=== PATIENT | female | born 1960 | race Caucasian/White ===

== ENCOUNTER 2020-06-05 14:32 | Emergency (ER) | payer OTHER, SELFPAY ==
[2020-06-05 14:33] VITALS: BP 184/107; PULSE 73; RESP 16; TEMP 36.1; O2SAT 97; BMI 30.7
[2020-06-05 14:51] VITALS: BP 177/123; BP 186/104; BP 203/144; PULSE 62; PULSE 71
--- NOTE | 2020-06-05 15:18 | ED.DCSUM_ITS ---
History of Present Illness Chief Complaint: Syncope Informant: Patient Narrative: 59-year-old female presenting with dizziness which she states has been on and off since Saturday. She describes it as vertiginous and worse in the morning. She has associated nausea. She has no visual complaints. She does not have a headache. She states she has no medical problems but has not been to a doctor in 10 years. She is not having chest pain, palpitations, shortness of breath. She has not had fever or chills. She is eating and drinking normally. She is making normal urine and stool. Past Medical History - Allergies and Home Meds Allergies/Adverse Reactions: Allergies codeine Adverse Reaction (Verified 06/05/20 14:36) Other Primary Care Physician: Greg Sigala MD [STAFF PHYSICIAN] - Care Physician,No Primary [Primary Care Provider] - Prior records reviewed: Yes Past Medical History: None Lives: With Family Smoking Status: Current every day smoker Alcohol: None Drugs: None Review of Systems General: Denies: Chills, Fever, Sweats Eyes: Denies: Visual changes - bilaterally, Diplopia ENT: Denies: Rhinorrhea, Sore throat Cardiovascular: Denies: Chest pain, Palpitations Respiratory: Denies: Dyspnea, Cough, Dyspnea on exertion Gastrointestinal: Reports: Nausea. Denies: Abdominal pain, Vomiting, Diarrhea, Melena, Hematochezia Genitourinary: Denies: Dysuria, Hematuria, Frequency Musculoskeletal: Denies: Back pain, Extremity Pain Skin: Denies: Rash, Wounds Neurological: Denies: Headache, Weakness, Parasthesia, Numbness Psych: Denies: Depression, Anxiety Physical Exam Vital Signs/Narrative: Vital Signs Temp Pulse Pulse Pulse Resp BP BP 06/05/20 14:51 62 71 186/104 H 06/05/20 14:33 97 F L 73 16 184/107 H BP BP Pulse Ox 06/05/20 14:51 203/144 H 177/123 H 06/05/20 14:33 97 General: Well nourished, No Acute Distress Head: Normocephalic, Atraumatic Eyes: Perrl, EOMI ENT: - - Dizziness is reproducible with [place]-Hallpike to the right. Cardiovascular: Regular rate, Regular rhythm Respiratory: No distress, CTA bilaterally Extremities: Nontender, No edema Skin: Normal color, No rash Neurological: Alert, Oriented x3, Cranial nerves II-XII grossly intact Psychological: Normal affect, Normal Mood Diagnostic/Tx/Re-eval - Rhythm Strip Rhythm Strip: Sinus Rhythm Rate: 54 - EKG Initial EKG Interpretation: Sinus Rhythm, No Acute Injury Pattern - Medical Decision Making 59-year-old female presenting with dizziness and found to be hypertensive. On physical exam I ambulated to reproduce her dizziness with [place]-Hallpike however she is hypertensive significantly. For this reason I did pursue a work-up. Patient had CBC CMP, troponin which were all within normal limits. EKG is interpreted by myself shows a sinus rhythm without any signs of ischemia. Chest x-ray is interpreted by myself shows no acute cardiopulmonary process however there is an 18 mm pulmonary nodule. Radiology does agree. CT of the brain is also negative for acute findings. Patient given 5 g of hydralazine with good response of her blood pressure. She feels well. I did branch credit counselor her on her pulmonary nodule and that she needed to follow-up for repeat imaging. She started on amlodipine 5 mg p.o. daily. Patient was also given a prescription for meclizine to use as needed. Patient was given referral for primary care she does not have a primary care physician. Patient is stable for discharge at this time. Impression: 1. Hypertension new medication started 2. Vertigo 3. Pulmonary nodule ED Disposition - Plan for ED Patient: Disposition: Home or Assisted Living Instructions: ED Hypertension, New (Begin Treatment), ED Pulmonary Nodule, Solitary, ED Vertigo, Unspecified Prescriptions: Meclizine HCl 25 mg PO Q8H PRN PRN #30 tab.chew PRN Reason: Dizziness Prescription Printed Amlodipine [Norvasc] 5 mg PO DAILY #30 tab Prescription Printed Referrals: Care Physician,No Primary [Primary Care Provider] - Greg Sigala MD [STAFF PHYSICIAN] -
--- NOTE | 2020-06-05 15:21 | EKG12_ITS ---
Test Reason : DIZZINESS Blood Pressure : / mmHG Vent. Rate : 054 BPM Atrial Rate : 054 BPM P-R Int : 118 ms QRS Dur : 080 ms QT Int : 410 ms P-R-T Axes : 066 070 058 degrees QTc Int : 388 ms Sinus bradycardia Otherwise normal ECG Confirmed by GRISELDA RICE, AUSTIN ([id number]), slot editor PEPE SHAH ([id number]) on 06/07/2020 8:21:20 AM Referred By: LENORE Confirmed By:AUSTIN VILLALOBOS MD
--- NOTE | 2020-06-05 15:21 | CT_ITS ---
STUDY: CT BRAIN WITHOUT CONTRAST REASON FOR EXAM: Female, 59 years old. Dizziness x 2 days, nausea. RADIATION DOSAGE (If Supplied By Facility): CTDIvol = ( 44.99 ) mGy, DLP = ( 779.24 ) mGycm TECHNIQUE: Transaxial CT imaging of the brain was performed without administration of intravenous contrast material. Individualized dose optimization techniques were used for this CT. COMPARISON: No relevant priors. FINDINGS: Normal soft tissue structures. Normal calvarium. Normal size ventricles and extra-axial spaces for the patient''s age. Normal white matter tracts of the cerebral hemispheres. Normal basal ganglia and thalami. Normal brainstem. Normal cerebellum. There is no intracranial hemorrhage. There are no findings of an acute ischemic infarction. Normal visualized paranasal sinuses. CT/Brain/Head without Contrast IMPRESSION: No acute intracranial hemorrhage or mass effect. Electronically Signed: Dieter Okeefe MD (Brooks) at 16:10 EST , Service support ,
[2020-06-05 15:38] LABS: Absolute Lymphocyte Count 2.25 X10^3/uL (0.83-4.51); Absolute Neutrophil Count 4.8 X10^3/uL (2.0-7.7); Basophil# 0.06 X10^3/uL; Basophil% 0.8 % (0-1); Eosinophil# 0.04 X10^3/uL; Eosinophils% 0.5 % (0-5); Hematocrit 42.6 % (37-47); Hemoglobin 14.3 g/dL (12.0-15.0); Lymphocyte # 2.25 X10^3/ul (4.0); Lymphocyte % 28.7 % (19-41); Mean Corp Hgb Conc 33.6 g/dL (32-36); Mean Corpuscular Hgb 30.4 pg (27.0-32.0); Mean Corpuscular Volume 90.4 fL (81-99); Mean Platelet Vol. 9.3 fl (6.2-12.0); Monocyte# 0.67 X10^3/uL; Monocyte% 8.5 % (0-10); NRBC Flagged by Analyzer 0 % (0-5); Neutrophil # 4.79 X10^3/uL (2.7-7.7); Neutrophil % 61.1 % (47-70); Platelet Count 269 K/mm3 (150-450); RBC Distribution Width CV 11.9 % (11.6-14.6); RBC Distribution Width SD 39.4 fl (35.1-43.9); Red Blood Count 4.71 M/mm3 (4.2-5.4); White Blood Count 7.8 K/mm3 (4.4-11.0)
[2020-06-05] MEDS: hydrALAZINE 20 MG/ML Vial 5 MG IV (15:41)
[2020-06-05 15:56] LABS: ALB/GLOB Ratio 1.1 RATIO (0.9-2.4); AST(SGOT) 19 U/L (15-37); Alanine Aminotransfer ALT/SGPT 25 U/L (13-56); Albumin, Serum 3.7 g/dL (3.2-5.0); Alkaline Phosphatase 78 U/L (45-117); Anion Gap 6 (5-15); BUN 16 mg/dL (7-18); Calcium,Total 8.8 mg/dL (8.5-10.1); Chloride 107 mmol/L (98-107); Creatinine, Serum 0.84 mg/dL (0.55-1.02); EST Glomerular Filtration Rate 73 mL/min (>60); Est Glom Filt Rate - Afr Amer 88 mL/min (>60); Estimated Creatinine Clearance 65.84 ml/min; Globulin 3.4 g/dL (2.2-4.2); Glucose 87 mg/dL (74-106); Potassium 3.8 mmol/L (3.5-5.1); Protein, Total 7.1 g/dL (6.4-8.2); Sodium Level 140 mmol/L (136-145)
[2020-06-05 16:09] VITALS: BP 136/94; PULSE 57; RESP 15; O2SAT 96
--- NOTE | 2020-06-05 16:10 | RAD_ITS ---
STUDY: X-RAY CHEST REASON FOR EXAM: Female, 59 years old. CO feeling dizzy (like room is spinning) off and on since Saturday. Also c/o nausea. TECHNIQUE: AP COMPARISON: None. FINDINGS: EKG leads project over the chest. No central or segmental pulmonary embolism. 18 mm round nodule in the right mid lung, no comparison. There is no demonstrated pleural abnormality. Normal size heart. Normal mediastinum and morro. Normal visualized pulmonary arteries. Normal visualized aortic arch and descending thoracic aorta. Normal visualized thoracic spine. Normal visualized ribs, clavicles, and shoulders. There is no demonstrated abnormality of the visualized soft tissue structures of the upper abdomen. RAD/Chest 1 View (Portable) IMPRESSION: 1. Nonacute portable x-ray examination of the chest. 2. 18 mm nodule in the right mid lung, no comparison study. Likely benign lesion such as granuloma but recommend comparison with prior studies or chest CT. Electronically Signed: Dieter Okeefe MD (Brooks) at 16:28 EST , Service support ,
[2020-06-05] MEDS: Meclizine HCl 25 MG Tablet PO (17:22)
[2020-06-05 17:45] VITALS: BP 138/88; PULSE 62; RESP 16; O2SAT 98
== END 2020-06-05 18:25 | disposition home or self-care (01) ==
PROVIDERS: Emergency Provider Student in an Organized Health Care Education/Training Program
DX: R42 Dizziness and giddiness (principal); R91.1 Solitary pulmonary nodule; I10 Essential (primary) hypertension; F17.200 Nicotine dependence, unspecified, uncomplicated
CPT/HCPCS: 70450; 71045; 80053; 84484; 85025; 93005; 96374; 99285; A4216

== ENCOUNTER → 2020-06-18 07:03 | Outpatient (CLI) | payer OTHER, SELFPAY ==
[2020-06-09 15:20] VITALS: BMI 34.4
[2020-06-18 09:08] LABS: CRP, High Sensitivity Cardiac 6.78 mg/L; Cholesterol 233 mg/dL (200); High Density Lipoprotein 62 mg/dL; Thyroid Stim Hormone (TSH) 2.01 uIU/mL (0.358-3.74); Triglycerides 116 mg/dL; Very Low Density Lipoprotein 23 mg/dL (5-40)
[2020-06-18 10:20] LABS: Hemoglobin A1c 5.4 % (3.8-5.6)
== END ==
PROVIDERS: PCP Internal Medicine; Referring Provider Internal Medicine; Visit Provider Internal Medicine
DX: H81.10 Benign paroxysmal vertigo, unspecified ear (principal); I10 Essential (primary) hypertension
CPT/HCPCS: 36415; 80061; 82306; 83036; 84443; 86141

== ENCOUNTER → 2020-09-22 15:43 | Outpatient (CLI) | payer OTHER, SELFPAY ==
--- NOTE | 2020-09-22 15:47 | CT_ITS ---
STUDY: CT CHEST WITH CONTRAST REASON FOR EXAM: Female, 60 years old. Lung nodule RADIATION DOSAGE (If Supplied By Facility): CTDIvol = ( 12.41 ) mGy, DLP = ( 561.89 ) mGycm TECHNIQUE: Transaxial imaging was performed following intravenous administration of IV 100mL Isovue-300. Individualized dose optimization techniques were used for this CT. COMPARISON: None. FINDINGS: The lungs are expanded. There is a right lower lobe 1.7 cm parenchymal nodule, image 61 series 4. 4 mm left lower lobe peripheral nodule, image 53 series 4. Normal heart and pericardium. Normal mediastinum. Normal hilar regions. Normal enhanced pulmonary arteries. Normal aorta arch and descending thoracic aorta. Normal osseous structures. There is no demonstrated abnormality of the visualized upper abdomen. CT/Chest WITH Contrast IMPRESSION: Pulmonary nodules as noted requiring further evaluation and follow-up. Electronically Signed: Fer Hall DO at 16:26 EDT Tel [phone], Service support ,
[2020-09-22 16:01] LABS: CREATININE FINGERSTICK 1.3 mg/dL (0.55-1.02)
== END ==
PROVIDERS: PCP Internal Medicine; Referring Provider Internal Medicine; Visit Provider Internal Medicine
DX: R91.1 Solitary pulmonary nodule (principal)
CPT/HCPCS: 71260; Q9967

== ENCOUNTER → 2020-12-27 07:45 | Outpatient (CLI) | payer OTHER, SELFPAY ==
[2020-12-27 08:02] LABS: Hematocrit 40.4 % (37-47); Hemoglobin 13.3 g/dL (12.0-15.0); Mean Corp Hgb Conc 32.9 g/dL (32-36); Mean Corpuscular Hgb 30.2 pg (27.0-32.0); Mean Corpuscular Volume 91.6 fL (81-99); Platelet Count 263 K/mm3 (150-450); RBC Distribution Width CV 12.2 % (11.6-14.6); RBC Distribution Width SD 40.8 fl (35.1-43.9); Red Blood Count 4.41 M/mm3 (4.2-5.4); White Blood Count 8.1 K/mm3 (4.4-11.0)
[2020-12-27 08:41] LABS: Prothrombin Time (Protime)PT. 12.3 SECONDS (11.7-14.9)
== END ==
PROVIDERS: PCP Internal Medicine; Referring Provider Internal Medicine Critical Care Medicine; Visit Provider Internal Medicine Critical Care Medicine
DX: R91.1 Solitary pulmonary nodule (principal); F17.210 Nicotine dependence, cigarettes, uncomplicated
CPT/HCPCS: 36415; 85027; 85610

== ENCOUNTER → 2020-12-30 10:30 | Outpatient (CLI) | payer OTHER, SELFPAY ==
--- NOTE | 2020-12-30 14:56 | PFTCOMP ---
COMPLETE PULMONARY FUNCTION TEST INTERPRETATION Brief HPI: Patient is a 60 year old female, currently under the care of Dr. Farah, who presents to [facility] for complete pulmonary function tests secondary to diagnosis of nicotine dependence. Respiratory therapist reports good effort and reproducible results. Interpretation: Forced expiration spirometry shows a mild large airways obstructive ventilatory defect with an FEV1 of 80% predicted. There is a significant bronchodilator response in FEV1 by strict ATS criteria. Spirograms are of good quality and plateau slowly, indicating slowly emptying areas of the lungs. The respiratory flow volume loop shows decreased expiratory flow rates at all lung volumes consistent with airway obstruction. Lung volumes by body plethysmography show a normal total lung capacity at 5.74 L, 113% predicted. FRC and RV are elevated out of proportion. Lung volume measurements are consistent with hyperinflation and air-trapping. Diffusion capacity by carbon monoxide is decreased at 68% predicted. The airway resistance is elevated. No previous pulmonary function tests were available for review. Impression: Partially reversible mild large airways obstructive ventilatory defect with a disproportionate reduction diffusing capacity, resulting in air trapping with hyperinflation.
== END ==
PROVIDERS: PCP Internal Medicine; Referring Provider Internal Medicine Critical Care Medicine; Visit Provider Internal Medicine Critical Care Medicine
DX: F17.210 Nicotine dependence, cigarettes, uncomplicated (principal); R91.1 Solitary pulmonary nodule
CPT/HCPCS: 94060; 94726; 94729

== ENCOUNTER → 2021-01-12 09:03 | Outpatient (CLI) | payer OTHER, SELFPAY ==
[2021-01-12] VITALS (13 sets, daily range): BP systolic 98–156; BP diastolic 60–94; PULSE 53–78; RESP 13–23; TEMP 36.7; O2SAT 95–99; BMI 34.2
--- NOTE | 2021-01-12 | ASPIGT_PTH ---
PATIENT: RUSSELL DSOUZA LOC: CT U#:[id number] AGE/SX: 64/F ROOM: RE01/12/[address]: Dr. Dinesh Farah DO : 1960 BED: DIS: SPEC #: [id number] RECD: 01/12/21 11:01 STATUS: ALFREDO HENRIQUE #: [id number] JUAN JOSÉ: 01/12/21 00:[address]: Dinesh Farah DEPT: SURGICAL PATHOLOGY RECD BY: Jp Edwards ENTERED: 01/12/21 11:01 SP TYPE: ASP RAD OTHR DR: Dr. Thelma Ahumada MD Tissues: Lung, NOS Procedures: FNA Specimen Adequacy Special Stain Group II Surgery Specimen Level IV Imprint (control) HEADER OPERATION: CT-guided right lung biopsy PRE-OP DIAGNOSIS: RLL nodule TISSUE SUBMITTED: Right lung 20-gauge core x6 MICROSCOPIC DIAGNOSIS Right lower lobe lung nodule, CT-guided core biopsy: Fragments of benign lung parenchymal tissue with chronic inflammation, focal fibrosis and cartilaginous tissue. Negative for malignancy. See comment. SJ:calista 01/13/2021 COMMENT The specimen is evaluated at the time of biopsy by Dr. Mast. Immediate Evaluation: Set 1 - Negative for malignant cells (2 smears). Set 2 - Negative for malignant cells (2 smears). The findings may represent hamartoma. Correlation with clinical, radiologic findings and appropriate follow up are necessary. Case has been reviewed in consultation with Dr. Gonzales who concurs with the above diagnosis. IDC:AM MICROSCOPIC DESCRIPTION Slides are reviewed. GROSS DESCRIPTION Received is one container labeled with the patient's name and not further designated. The specimen consists of multiple minute fragments of nieves tissue that in aggregate measure 1 x 0.1 x <0.1 cm. The specimen is totally submitted in one cassette. Four touch imprints are prepared at the time of core biopsy. / AM:calista 01/12/21 TC:5 CPT: 92801, 33377, 82669
--- NOTE | 2021-01-12 09:05 | CT_ITS ---
PROCEDURE: CT GUIDED CORE NEEDLE BIOPSY OF A right lower lobe LUNG LESION INDICATION: Female, 60 years old. RLL Nodule PHYSICIAN: Dr. FAY Curry CONSENT: Written informed consent was obtained having explained the risks, benefits and alternatives in detail with the patient who accepted the risks and agreed to proceed. Laboratory review and clinical assessment was performed. CONSCIOUS SEDATION PROTOCOL: The Drugs used were: 2 mg Versed, IV., and 50 mcg Fentanyl, IV. The sedation time was: 26 minutes. Conscious sedation was started at 9:57 AM and terminated at 1023 The conscious sedation protocol was independently monitored. RADIATION DOSAGE (If Supplied By Facility): CTDIvol = ( 19.71 ) mGy, DLP = ( 274.38 ) mGycm Individualized dose optimization techniques were used for this CT. TECHNIQUE: The patient was placed in the prone position. A noncontrast CT was performed to localize the lesion in the posterior aspect of the right lower lobe . The skin surface was prepped and draped in a sterile fashion. 1% lidocaine was used for local anesthesia. Using CT guidance, a 20-gauge coaxial biopsy device was advanced to the periphery of the lesion. A total of 6 core specimens were obtained. The specimens were placed in a formalin solution. A post procedure CT demonstrated no adverse sequelae or pneumothorax. The patient tolerated the procedure well without adverse event. A negative biopsy does not exclude malignancy. Further imaging or clinical followup based on patient condition and degree of clinical suspicion for malignancy. Suggest rebiopsy, if biopsy results do not match with clinical scenario. CT/Biopsy/Inj or Needle Placement IMPRESSION: 1. CT directed core needle biopsy of the right lower lobe pulmonary nodule using CT image guidance with image documentation as described. Pathology results are pending. 2. Conscious Sedation protocol utilized with independent monitoring. Electronically Signed: Justen Leo MD at 11:08 EDT , Service support ,
[2021-01-12] MEDS: Midazolam 2 MG/2 ML Syringe IV (09:57)
[2021-01-12] MEDS: fentaNYL 100 MCG/2 ML Ampul IV (09:58)
[2021-01-12] MEDS: Lidocaine 2% (20 ml mdv) 20 ML Vial INFILT (10:10)
--- NOTE | 2021-01-12 10:32 | RAD_ITS ---
STUDY: X-RAY CHEST REASON FOR EXAM: Female, 60 years old. Post biopsy -- immediately post lung biopsy TECHNIQUE: AP inspiration and expiration views. Immediate postright lung biopsy radiograph. COMPARISON: None. FINDINGS: Tiny right apical pneumothorax. RAD/Chest Insp/Exp 2 View IMPRESSION: Tiny right apical pneumothorax. Electronically Signed: Justen Leo MD at 11:00 EDT , Service support ,
--- NOTE | 2021-01-12 12:30 | RAD_ITS ---
STUDY: X-RAY CHEST REASON FOR EXAM: Female, 60 years old. Post biopsy -- 2 hours post lung biopsy TECHNIQUE: AP inspiration and expiration views. COMPARISON: Comparison is made with prior study done earlier today. FINDINGS: The patient is status post right lung biopsy. There is a tiny right apical pneumothorax. RAD/Chest Insp/Exp 2 View IMPRESSION: Tiny right apical pneumothorax following a right lung biopsy. The patient is asymptomatic. Electronically Signed: Justen Leo MD at 13:03 EDT , Service support ,
== END | disposition home or self-care (01) ==
PROVIDERS: PCP Internal Medicine; Referring Provider Internal Medicine Critical Care Medicine; Visit Provider Internal Medicine Critical Care Medicine
DX: J84.10 Pulmonary fibrosis, unspecified (principal); J98.4 Other disorders of lung
CPT/HCPCS: 32408; 71046; 77012; 88172; 88305; 88313; 99156; J7040; C2613

== ENCOUNTER → 2021-04-05 12:51 | Outpatient (CLI) | payer OTHER, SELFPAY ==
--- NOTE | 2021-04-05 12:56 | CT_ITS ---
STUDY: CT CHEST WITHOUT CONTRAST REASON FOR EXAM: Female, 60 years old. Lung nodule f/u RADIATION DOSAGE (If Supplied By Facility): CTDIvol = ( 10.01 ) mGy, DLP = ( 348.32 ) mGycm TECHNIQUE: Transaxial imaging was performed without the administration of intravenous contrast material. Multiplanar coronal and sagittal images were reformatted. Individualized dose optimization techniques were used for this CT. COMPARISON: Comparison is made with prior study dated 09/22/2020. FINDINGS: Mild degree of scarring at the right lung apex. Mild degree of emphysematous changes in both lungs. Stable 1.7 cm noncalcified nodule in the superior aspect of the right lower lobe as seen on axial image #56. Stable 4 mm noncalcified nodule in the peripheral aspect of the left lower lobe as seen on axial image #49. There is no demonstrated pleural abnormality. Normal heart and pericardium. There are multiple small lymph nodes within the mediastinum, which are normal in size and morphology most compatible with reactive lymph hyperplasia. Normal hilar regions. Normal unenhanced pulmonary arteries. Normal aorta arch and descending thoracic aorta. There are multi-level degenerative changes of the thoracic spine. There is no demonstrated abnormality of the visualized upper abdomen. CT/Chest without Contrast IMPRESSION: Stable examination. Six-month follow-up is recommended. Electronically Signed: Justen Leo MD at 15:07 EST , Service support ,
== END ==
PROVIDERS: PCP Internal Medicine; Referring Provider Nurse Practitioner Acute Care; Visit Provider Nurse Practitioner Acute Care
DX: R91.1 Solitary pulmonary nodule (principal)
CPT/HCPCS: 71250

== ENCOUNTER 2021-05-16 13:41 | Outpatient (CLI) | payer OTHER, SELFPAY ==
[2021-05-16 15:05] LABS: Absolute Lymphocyte Count 2.05 X10^3/uL (0.83-4.51); Absolute Neutrophil Count 4.7 X10^3/uL (2.0-7.7); Basophil# 0.03 X10^3/uL; Basophil% 0.4 % (0-1); Eosinophil# 0.01 X10^3/uL; Eosinophils% 0.1 % (0-5); Hematocrit 41.7 % (37-47); Hemoglobin 14.3 g/dL (12.0-15.0); Lymphocyte # 2.05 X10^3/ul (0.83-4.51); Lymphocyte % 27.5 % (19-41); Mean Corp Hgb Conc 34.3 g/dL (32-36); Mean Corpuscular Hgb 30.4 pg (27.0-32.0); Mean Corpuscular Volume 88.5 fL (81-99); Mean Platelet Vol. 10.2 fl (6.2-12.0); Monocyte# 0.66 X10^3/uL; Monocyte% 8.9 % (0-10); NRBC Flagged by Analyzer 0 % (0-5); Neutrophil # 4.68 X10^3/uL (2.7-7.7); Neutrophil % 62.8 % (47-70); POSITIVE MORPHOLOGY YES; Platelet Count 209 K/mm3 (150-450); RBC Distribution Width CV 12.4 % (11.6-14.6); RBC Distribution Width SD 40.2 fl (35.1-43.9); Red Blood Count 4.71 M/mm3 (4.2-5.4); White Blood Count 7.5 K/mm3 (4.4-11.0)
[2021-05-16 15:06] LABS: Differential Indicated SCAN CRITERIA MET
[2021-05-16 15:22] LABS: Vitamin D,25 Hydroxy 33.1 ng/mL
[2021-05-16 15:32] LABS: ALB/GLOB Ratio 1.1 RATIO (0.9-2.4); AST(SGOT) 27 U/L (15-37); Alanine Aminotransfer ALT/SGPT 35 U/L (13-56); Albumin, Serum 3.6 g/dL (3.2-5.0); Alkaline Phosphatase 73 U/L (45-117); Anion Gap 7 (5-15); BUN 11 mg/dL (7-18); BUN/Creat Ratio 16.1 RATIO (10-20); Calcium,Total 8.2 mg/dL (8.5-10.1); Chloride 107 mmol/L (98-107); Creatinine, Serum 0.68 mg/dL (0.55-1.02); EST Glomerular Filtration Rate 92 mL/min (>60); Est Glom Filt Rate - Afr Amer 112 mL/min (>60); Free T3 2.5 pg/mL (2.18-3.98); Globulin 3.4 g/dL (2.2-4.2); Glucose 99 mg/dL (74-106); Magnesium 2.4 mg/dL (1.6-2.6); Potassium 3.7 mmol/L (3.5-5.1); Sodium Level 140 mmol/L (136-145); T4 Free Direct 1.26 ng/dL (0.76-1.46); Thyroid Stim Hormone (TSH) 1.32 uIU/mL (0.358-3.74)
[2021-05-16 15:57] LABS: Anisocytosis RARE; Atypical Lymphocyte 1+ %; Platelet Estimate ADEQUATE (ADEQ); Red Cell Morphology N CHROM NORMAL (NORM C&C)
== END 2021-05-16 23:59 | disposition short-term general hospital (02) ==
LOC: BIMLAB 13:42
PROVIDERS: PCP Internal Medicine; Referring Provider Internal Medicine; Visit Provider Internal Medicine
DX: R25.1 Tremor, unspecified (principal)
CPT/HCPCS: 36415; 80053; 82306; 83735; 84439; 84443; 84481; 85025

== ENCOUNTER → 2021-11-13 | Outpatient (CLI) | payer OTHER, SELFPAY ==
--- NOTE | 2021-11-13 07:47 | CT_ITS ---
STUDY: CT CHEST WITHOUT CONTRAST REASON FOR EXAM: Female, 61 years old. Lung Nodules RADIATION DOSAGE (If Supplied By Facility): CTDIvol = ( 15.22 ) mGy, DLP = ( 589.37 ) mGycm TECHNIQUE: Transaxial imaging was performed without the administration of intravenous contrast material. Multiplanar coronal and sagittal images were reformatted. Individualized dose optimization techniques were used for this CT. COMPARISON: Comparison is made with prior study dated 04/05/2021. FINDINGS: CHEST Stable small benign-appearing bilateral axillary nodes. Stable mild scarring at the right lung apex. Stable 1.7 cm noncalcified nodule in the superior aspect of the right lower lobe as seen on axial image #58. Stable 4 mm noncalcified nodule in the peripheral aspect of the left lower lobe as seen on axial image #48. There is no demonstrated pleural abnormality. There are calcifications of the coronary arteries. There are multiple small lymph nodes within the mediastinum, which are normal in size and morphology most compatible with reactive lymph hyperplasia. Normal hilar regions. Normal unenhanced pulmonary arteries. There is atherosclerotic calcification of the aortic arch. There are multi-level degenerative changes of the thoracic spine. There is no demonstrated abnormality of the visualized upper abdomen. CT/Chest without Contrast IMPRESSION: Stable examination. Electronically Signed: Justen Leo MD at 9:03 EDT ,
== END | disposition home or self-care (01) ==
PROVIDERS: PCP Internal Medicine; Referring Provider Internal Medicine Critical Care Medicine; Visit Provider Internal Medicine Critical Care Medicine
DX: R91.1 Solitary pulmonary nodule (principal)
CPT/HCPCS: 71250

== ENCOUNTER → 2022-10-29 | Outpatient (CLI) | payer OTHER, SELFPAY ==
--- NOTE | 2022-10-29 06:56 | CT_ITS ---
EXAM: CT CHEST WITHOUT INTRAVENOUS CONTRAST CLINICAL INDICATION: Lung Nodule, Tobacco Dependency Lung Nodule, Tobacco Dependency TECHNIQUE: Helically acquired images were obtained of the chest without intravenous contrast. This CT exam was performed using one or more of the following dose reduction techniques: automated exposure control, adjustment of the mA and/or kV according to patient size, and/or use of iterative reconstruction technique. RADIATION DOSE: CTDIvol = 15.06 mGy, DLP = 545.63 mGy-cm COMPARISON: 11/13/2021. 09/22/2020. FINDINGS: LUNGS AND PLEURAL SPACES: There are very mild fibrotic changes in the right lung apex. There are a few small paraseptal emphysematous bullae in the right lung apex. As seen on series 2, axial images 54-61, there is a 2 cm right lower lobe lung nodule. By my measurement there is no definite change in size from previous exams. As seen on axial image 48, there is a 4.5 mm left lower lobe lung nodule, which also appears stable. No pleural effusion or thickening. No pneumothorax. HEART: There are small coronary artery calcifications. Heart size is normal. No pericardial effusion. MEDIASTINUM: Unremarkable. No mediastinal or hilar adenopathy. Esophagus is unremarkable. No hiatal hernia. THYROID: Unremarkable. No thyroid lesions. BONES/JOINTS: There are multilevel degenerative changes in the visualized spine. No suspicious lytic or blastic abnormality. VASCULATURE: See above. LIVER: There are small low attenuation space occupying lesions in the visualized left lobe liver which are stable in appearance and probably represent cysts. No further evaluation is necessary. CT/Chest without Contrast IMPRESSION: 1. 2 cm right lower lobe lung nodule and 4.5 mm left lower lobe lung nodule are stable in size over the last 2 years. Fleischner Society Guidelines suggest no follow-up is necessary for patients with a high risk of malignancy. 2. Small coronary artery calcifications. Electronically Signed: Pato Heredia MD at 8:01 EDT ,
== END | disposition home or self-care (01) ==
LOC: CT 06:55
PROVIDERS: PCP Internal Medicine; Referring Provider Internal Medicine Critical Care Medicine; Visit Provider Internal Medicine Critical Care Medicine
DX: R91.8 Other nonspecific abnormal finding of lung field (principal); F17.200 Nicotine dependence, unspecified, uncomplicated
CPT/HCPCS: 71250

== ENCOUNTER → 2022-12-03 | Outpatient (CLI) | payer OTHER, SELFPAY ==
[2022-12-03 12:20] LABS: Absolute Lymphocyte Count 2.28 X10^3/uL (0.83-4.51); Absolute Neutrophil Count 6.4 X10^3/uL (2.0-7.7); Basophil# 0.08 X10^3/uL; Basophil% 0.8 % (0-1); Eosinophil# 0.06 X10^3/uL; Eosinophils% 0.6 % (0-5); Hematocrit 42.5 % (37-47); Hemoglobin 14.6 g/dL (12.0-15.0); Lymphocyte # 2.28 X10^3/ul (0.83-4.51); Lymphocyte % 23.9 % (19-41); Mean Corp Hgb Conc 34.4 g/dL (32-36); Mean Corpuscular Hgb 31.2 pg (27.0-32.0); Mean Corpuscular Volume 90.8 fL (81-99); Mean Platelet Vol. 9.5 fl (6.2-12.0); Monocyte# 0.75 X10^3/uL; Monocyte% 7.9 % (0-10); NRBC Flagged by Analyzer 0 % (0-5); Neutrophil # 6.35 X10^3/uL (2.7-7.7); Neutrophil % 66.5 % (47-70); Platelet Count 270 K/mm3 (150-450); RBC Distribution Width CV 12.3 % (11.6-14.6); RBC Distribution Width SD 40.8 fl (35.1-43.9); Red Blood Count 4.68 M/mm3 (4.2-5.4); White Blood Count 9.6 K/mm3 (4.4-11.0)
[2022-12-03 12:52] LABS: Vitamin D,25 Hydroxy 35.4 ng/mL
[2022-12-03 13:04] LABS: ALB/GLOB Ratio 0.9 RATIO (0.9-2.4); AST(SGOT) 25 U/L (15-37); Alanine Aminotransfer ALT/SGPT 30 U/L (13-56); Albumin, Serum 3.6 g/dL (3.2-5.0); Alkaline Phosphatase 82 U/L (45-117); Anion Gap 4 (5-15); BUN 17 mg/dL (7-18); BUN/Creat Ratio 18.1 RATIO (10-20); Calcium,Total 8.7 mg/dL (8.5-10.1); Chloride 104 mmol/L (98-107); Cholesterol 230 mg/dL (200); Creatinine, Serum 0.94 mg/dL (0.55-1.02); EST Glomerular Filtration Rate 64 mL/min (>60); Est Glom Filt Rate - Afr Amer 77 mL/min (>60); Globulin 3.8 g/dL (2.2-4.2); Glucose 97 mg/dL (74-106); High Density Lipoprotein 58 mg/dL; Potassium 4.1 mmol/L (3.5-5.1); Protein, Total 7.4 g/dL (6.4-8.2); Sodium Level 135 mmol/L (136-145); Thyroid Stim Hormone (TSH) 2.11 uIU/mL (0.358-3.74); Triglycerides 119 mg/dL; Very Low Density Lipoprotein 24 mg/dL (5-40)
== END | disposition home or self-care (01) ==
LOC: LAB 11:56
PROVIDERS: PCP Internal Medicine; Referring Provider Internal Medicine; Visit Provider Internal Medicine
DX: I10 Essential (primary) hypertension (principal); J44.9 Chronic obstructive pulmonary disease, unspecified; F17.210 Nicotine dependence, cigarettes, uncomplicated; E55.9 Vitamin D deficiency, unspecified
CPT/HCPCS: 36415; 80053; 80061; 82306; 84443; 85025

== ENCOUNTER → 2023-06-18 | Outpatient (CLI) | payer OTHER, SELFPAY ==
[2023-06-18 17:54] LABS: Hemoglobin A1c 5.7 % (3.8-5.6)
== END | disposition home or self-care (01) ==
PROVIDERS: PCP Internal Medicine; Referring Provider Orthopaedic Surgery Sports Medicine; Visit Provider Orthopaedic Surgery Sports Medicine
DX: M75.01 Adhesive capsulitis of right shoulder (principal)
CPT/HCPCS: 36415; 83036

== ENCOUNTER → 2023-11-04 | Outpatient (CLI) | payer MEDICARE, SELFPAY ==
--- NOTE | 2023-11-04 08:42 | CT_ITS ---
STUDY: LOW DOSE CT LUNG CANCER SCREENING REASON FOR EXAM: Female, 63 years old. Smoker and gt;40 pack years RADIATION DOSAGE (If Supplied By Facility): CTDIvol = ( 4.02 ) mGy, DLP = ( 142.95 ) mGycm TECHNIQUE: No contrast was administered. Low dose technique was utilized (average mAS-38 and kVp 120). 1.25 mm axial source images with a slice interval of 1.25-mm were reconstructed in lung windows. 2.5 mm axial source images with a slice interval of 2.5-mm were reconstructed in lung windows. 5.0 mm axial source images with a slice interval of 5.0-mm were reconstructed in soft tissue windows. COMPARISON: Comparison is made with prior study dated October 29, 2022. NODULES: Stable 2 cm well-defined nodule in the superior posterior segment of the right lower lobe as seen on axial image #116. Stable 4.5 mm noncalcified nodule in the left lower lobe Emphysema: Stable scarring in the right lung apex. Endobronchial lesion: None Aorta: Atherosclerotic calcific plaques. CORONARY ARTERIES: Coronary artery calcification is seen. Heart: Unremarkable Pulmonary artery: Unremarkable Mediastinal nodes: Small mediastinal lymph nodes. Other chest and abdominal findings: CT/Low Dose CT Lung Screening IMPRESSION: Lung-RADS category 2 - Continue annual screening with LDCT in 12 months. IMPORTANT NOTES FOR USE: ACR Lung-RADS Version 1.1 Assessment Categories Release Date: 2018 Category: Coded 0-4 bases on nodule(s) with highest degree of suspicion. Negative screen is defined as categories 1 and 2; a positive screen is defined as categories 3 and 4. Category 3 and 4A nodules that are unchanged on interval CT should be coded as category 2, and individuals returned to screening in 12 months. Category 4X: Category 3 or 4 nodules with additional imaging findings that increase the suspicion of lung cancer, such as spiculation, GGN that doubles in size in 1 year, enlarged lymph notes, etc. Category Modifiers: S (significant finding unrelated to lung cancer) Electronically Signed: Justen Leo MD at 13:20 EDT ,
== END | disposition home or self-care (01) ==
PROVIDERS: PCP Internal Medicine; Referring Provider Nurse Practitioner Acute Care; Visit Provider Nurse Practitioner Acute Care
DX: F17.210 Nicotine dependence, cigarettes, uncomplicated (principal)
CPT/HCPCS: 71271

== ENCOUNTER 2024-10-18 22:16 | Emergency (ER) | payer MEDICARE, SELFPAY ==
[2024-10-18 22:16] VITALS: BP 156/72; PULSE 64; RESP 18; TEMP 36.9; O2SAT 96; BMI 34.9
--- NOTE | 2024-10-18 22:32 | EKG12_ITS ---
Test Reason : DIZZY Blood Pressure : */* mmHG Vent. Rate : 59 BPM Atrial Rate : 59 BPM P-R Int : 126 ms QRS Dur : 88 ms QT Int : 424 ms P-R-T Axes : 48 79 51 degrees QTcB Int : 419 ms Sinus bradycardia Otherwise normal ECG Confirmed by GRISELDA RICE, AUSTIN ([id number]), makeup editor VICENTA LEACH ([id number]) on 10/20/2024 6:47:20 AM Referred By: Confirmed By: AUSTIN VILLALOBOS MD
--- NOTE | 2024-10-18 22:32 | CT_ITS ---
PROCEDURE: BRAIN/HEAD WITHOUT CONTRAST 10/18/2024 REASON FOR EXAM: DIZZINESS TECHNIQUE: BRAIN/HEAD WITHOUT CONTRAST Coronal and Sagittal reconstruction series were provided. One or more dose reduction techniques were used (e.g., Automated exposure control, adjustment of the mA and/or kV according to patient size, use of iterative reconstruction technique. RADIATION DOSE SUMMARY: CTDlvol: 44.99 mGy DLP: 829.85 mGycm COMPARISON: 06/05/2020. FINDINGS: CT SCAN OF THE BRAIN WITHOUT IV CONTRAST CLINICAL INDICATION: TECHNIQUE: Axial and reformatted sagittal and coronal images of the brain obtained without IV contrast administration. Normal size of the ventricles and extra-axial spaces for the patient's age. Normal white matter tracts of the supratentorial brain. Normal basal ganglia and thalami. Normal brainstem. Normal cerebellum. There is no demonstrated extra-axial, intraparenchymal, or intraventricular hemorrhage. There are no findings of an acute ischemic infarction. Normal calvarium. There is no demonstrated fracture. Normal soft tissue structures. Normal visualized paranasal sinuses. CT/Brain/Head without Contrast IMPRESSION: Normal unenhanced CT scan of the brain. Reading Location: [id number]
--- NOTE | 2024-10-18 22:45 | EX.ED.DYSGE1 ---
HPI History of Present Illness Chief Complaint: Dizziness Narrative Narrative: Chief complaint and HPI: Dizziness with presyncope. 64-year-old female with past medical history of HTN and tobacco abuse presents for evaluation of dizziness with presyncope. Patient states this evening after getting up from a seated position she became dizzy/lightheaded. She states she was able to make it to her bedroom where she rested in bed. She states she then got up to smoke a cigarette and when walking she became dizzy/lightheaded with tunnel vision. Associated symptom was nausea and one episode of nonbilious/nonbloody emesis. She denies room spinning. She denies any fever, chills, URI symptoms, headache, vision changes, hearing changes, shortness of breath, chest pain abdominal pain, dysuria, diarrhea, constipation. Patient endorses good p.o. intake. She denies any neurological deficit, weakness, numbness/tingling. On chart review, patient has a history of dizziness in the past at that time she was diagnosed with HTN and vertigo. Review of systems: See HPI Medications: As listed on the chart Allergies: As listed on the chart PFSH: Per chart Vital signs: As listed on the chart. Reviewed. Physical exam: Gen: A&O x3, NAD Head: Normocephalic, atraumatic Eyes: No sclera icterus, conjunctiva clear, PERRL, EOMI no nystagmus, ENT: Moist mucous membranes, No facial asymmetry Neck: Trachea midline, No JVD CV: RRR, no murmurs, no peripheral edema Resp: Lungs CTA BL, no w/r/c GI: Abd soft, non-distended, non-tender, no r/r/g Musc: Full ROM, no deformity, strength +5/5 in all extremities, no pronator drift, no ataxia Skin: Warm, dry, intact Neuro: Alert, oriented, grossly intact, sensation intact, no focal deficits Psych: Cooperative, appropriate mood and affect [facility] Medical History (Reviewed 12/12/23 @ 07:50 by Liliana Rosas [employer], [employer]-C) Adhesive capsulitis of right shoulder Lung nodule Seasonal allergies Hypertension Home Medications ?Medication ?Instructions ?Recorded ?Last Taken ?Type calcium 600 mg (as 600 cap PO BID 12/21/20 Unknown History carbonate)-vitamin D3 12.5 mcg (500 unit) capsule (Calcium with Vit D3) amlodipine 5 mg tablet 5 mg PO BID #180 tabs 12/09/23 Unknown Rx meclizine 25 mg tablet 25 mg PO TID PRN dizziness 3 days 10/19/24 Unknown Rx #9 tabs Allergy/AdvReac Type Severity Reaction Status Date / Time codeine AdvReac Other Verified 12/12/23 07:41 Family History (Reviewed 12/12/23 @ 07:50 by Liliana Rosas [employer], [employer]-C) Mother Breast cancer CVA (cerebral vascular accident) Hypertension Osteoporosis Alcoholism Other Depression with anxiety Surgical History History of appendectomy Social History Smoking Status: Current every day smoker tobacco type: cigarettes Tobacco: How many years used: 40 alcohol intake: never substance use type: does not use what type of physical activity do you participate in: walking frequency: daily EXAM Physical Exam Const Vital Signs: 10/18/24 22:16 10/18/24 22:55 10/19/24 00:20 Temperature 98.4 F Temperature Source Oral Pulse Rate 64 64 Pulse Rate [Lying] 66 Respiratory Rate 18 20 H Blood Pressure 156/72 H 121/49 H Blood Pressure [Lying] 156/76 H Blood Pressure Mean 100 73 Blood Pressure Mean [Lying] 102 Pulse Ox 96 95 Oxygen Delivery Method Room Air Room Air MDM MDM MDM Narrative Medical decision making narrative: 64-year-old female with past medical history of HTN and tobacco abuse presents for evaluation of dizziness with presyncope. Dizziness appears worsened with change in position. Associated symptom was nausea with one episode of emesis. On chart review, she had a history of this in the past in which she was diagnosed with HTN and vertigo. On presentation, patient is no acute distress. Physical exam is unremarkable. She is mildly hypertensive otherwise vitals are stable. Differential diagnosis includes but is not limited to orthostatic hypotension, vasovagal response, vertigo, dehydration, electrolyte abnormality, TAPAN, UTI, suspect less likely intracranial abnormality or ACS. NS bolus, Zofran, meclizine ordered for symptoms. Laboratory workup ordered including chest x-ray and CT head. Orthostatic vital signs were attempted however patient endorsed dizziness with a seated position and therefore declined further vital testing. EKG and chest x-ray reviewed below. CBC with mild leukocytosis of 12. No anemia. D-dimer unremarkable. BMP unremarkable without significant electrolyte abnormality or TAPAN. UA negative for ketones or UTI. CT head without any acute intracranial abnormality. Troponin negative x 2. At this point in time, no clear etiology for patient's dizziness. On reevaluation, patient states she has no dizziness at rest however when she moves or ambulates she develops dizziness. We attempted an ambulation trial in which patient failed. She endorsed room spinning vertigo as well as inability to ambulate. Given this concern, patient will warrant admission due to unsafe discharge. I spoke with the patient who confirmed understanding of the plan. Patient was discussed with Dr. Harrison, the hospitalist. He would like to try scopolamine patch with reevaluation. I do think this is appropriate. Scopolamine patch placed. On reevaluation, patient's dizziness has improved. She was able to ambulate down the hallway and states her dizziness is much improved. Patient symptoms are likely secondary to vertigo. Patient is stable to discharge home. She was educated that the patch needs to be removed in 72 hours. She is educated to not touch the patch with her bare hands and if she does she needs to use soap and water. Recommended to follow-up with PCP. Return precautions explained. Will provide a walker for home as patient does not have any ambulatory devices to help her if her dizziness reoccurs. Will send her with a short course of meclizine. EKG: Interpreted by me/EM physician: EKG shows sinus bradycardia without any acute ischemic changes. Heart rate 59. Diagnostic: Interpreted by me/EM physician: Chest x-ray without pneumonia, effusion, pneumothorax. Patient has a right lung nodule. On chart review, this is present on previous imaging. Per radiology it is 2.2 cm. Impression 1. Vertigo Lab Data Labs: Laboratory Results - last 24 hr 10/18/24 10/18/24 10/18/24 22:45 22:55 23:00 WBC 12.0 H RBC 4.46 Hgb 13.6 Hct 39.9 MCV 89.5 MCH 30.5 MCHC 34.1 RDW Std Deviation 40.5 RDW Coeff of [place] 12.4 Plt Count 247 MPV 9.2 Immature Gran % (Auto) 0.400 Neut % (Auto) 73.6 H Lymph % (Auto) 17.1 L [place] % (Auto) 7.6 Eos % (Auto) 0.7 Baso % (Auto) 0.6 Absolute Neuts (auto) 8.9 H Absolute Lymphs (auto) 2.06 Nucleated RBC % 0 D-Dimer Quant (PE/DVT) Cancelled Sodium 140 Potassium 3.6 Chloride 104 Carbon Dioxide 24.6 Anion Gap 12 BUN 19 Creatinine 0.87 Estim Creat Clear Calc 72.62 Est GFR (MDRD) Non-Af 74 BUN/Creatinine Ratio 21.4 H Glucose 106 H Calcium 9.0 Troponin T High Sens 6 Troponin T Hi Sens 2 Hr Urine Color Yellow Urine Clarity Clear Urine pH 6.5 Ur Specific [place] 1.015 Urine Protein Negative Urine Glucose (UA) Normal Urine Ketones Negative Urine Occult Blood 10 H Urine Nitrite Negative Urine Bilirubin Negative Urine Urobilinogen Normal Ur Leukocyte Esterase Negative Urine RBC 0 SEEN Urine WBC 0 SEEN Ur Squamous Epith Cells 0 SEEN Urine Bacteria 0 SEEN Urine Mucus 0 SEEN 10/18/24 10/19/24 23:14 00:40 WBC RBC Hgb Hct MCV MCH MCHC RDW Std Deviation RDW Coeff of [place] Plt Count MPV Immature Gran % (Auto) Neut % (Auto) Lymph % (Auto) [place] % (Auto) Eos % (Auto) Baso % (Auto) Absolute Neuts (auto) Absolute Lymphs (auto) Nucleated RBC % D-Dimer Quant (PE/DVT) 0.31 Sodium Potassium Chloride Carbon Dioxide Anion Gap BUN Creatinine Estim Creat Clear Calc Est GFR (MDRD) Non-Af BUN/Creatinine Ratio Glucose Calcium Troponin T High Sens Troponin T Hi Sens 2 Hr 7 Urine Color Urine Clarity Urine pH Ur Specific [place] Urine Protein Urine Glucose (UA) Urine Ketones Urine Occult Blood Urine Nitrite Urine Bilirubin Urine Urobilinogen Ur Leukocyte Esterase Urine RBC Urine WBC Ur Squamous Epith Cells Urine Bacteria Urine Mucus Radiography Diagnostic Testing: Clinical Impression(s) from Imaging Studies Brain CT 10/18/24 22:32 IMPRESSION: Normal unenhanced CT scan of the brain. Reading Location: [place] [id number] Chest X-Ray 10/18/24 23:31 IMPRESSION: Again seen is a 2.2 cm circular right midlung nodule. No focal consolidations. No pleural effusion or pneumothorax. Reading Location: [facility] Discharge Plan Triage Chief Complaint: Dizziness ED Provider: Mauro Ryder Dx/Rx/DC Orders Clinical Impression: Vertigo Instructions: Vertigo Balance Problems Tests, Vertigo Staying Safe, ED Vertigo, Unspecified Prescriptions: New meclizine 25 mg tablet 25 mg PO TID PRN (Reason: dizziness) 3 Days Qty: 9 0RF No Action calcium carbonate-vitamin D3 [Calcium 600 with Vitamin D3] 600 mg(1,500mg) -500 unit capsule 600 cap PO BID amlodipine 5 mg tablet 5 mg PO BID Qty: 180 3RF Primary Care Provider: Thelma Ahumada Referrals: Thelma Ahumada MD [Primary Care Provider] - 3-5 Days Activity Restrictions/Additional Instructions: Follow-up with primary care physician. Return back to the ED if symptoms change or worsen. Scopolamine patch needs to be removed on 10/22/2024 at 1230 AM, okay to remove it earlier if needed. Do not touch the patch with bare hands. Meclizine as needed for dizziness. Print Language: Azerbaijani Disposition Disposition: Home, Self Care
[2024-10-18 22:53] LABS: Absolute Lymphocyte Count 2.06 X10^3/uL (0.83-4.51); Absolute Neutrophil Count 8.9 X10^3/uL (2.0-7.7); Basophil# 0.07 X10^3/uL; Basophil% 0.6 % (0-1); Eosinophil# 0.09 X10^3/uL; Eosinophils% 0.7 % (0-5); Hematocrit 39.9 % (37-47); Hemoglobin 13.6 g/dL (12.0-15.0); Lymphocyte # 2.06 X10^3/ul (0.83-4.51); Lymphocyte % 17.1 % (19-41); Mean Corp Hgb Conc 34.1 g/dL (32-36); Mean Corpuscular Hgb 30.5 pg (27.0-32.0); Mean Corpuscular Volume 89.5 fL (81-99); Mean Platelet Vol. 9.2 fl (6.2-12.0); Monocyte# 0.92 X10^3/uL; Monocyte% 7.6 % (0-10); NRBC Flagged by Analyzer 0 % (0-5); Neutrophil # 8.85 X10^3/uL (2.7-7.7); Neutrophil % 73.6 % (47-70); Platelet Count 247 K/mm3 (150-450); RBC Distribution Width CV 12.4 % (11.6-14.6); RBC Distribution Width SD 40.5 fl (35.1-43.9); Red Blood Count 4.46 M/mm3 (4.2-5.4)
[2024-10-18 22:55] VITALS: BP 156/76; PULSE 66
[2024-10-18] MEDS: Ondansetron 4 MG/2 ML Vial IV (22:57)
[2024-10-18] MEDS: 0.9% Normal Saline (1000mL) 1,000 ML 1000 ML IV (22:57)
[2024-10-18] MEDS: Meclizine HCl 25 MG Tablet PO (22:58)
[2024-10-18 23:09] LABS: Bacteria 0 SEEN /hpf (None Seen); Mucous, Urine 0 SEEN /hpf (<or=2+); Red Blood Cells-Urine 0 SEEN /hpf (0-5); Squamous Epithelial Cells - UA 0 SEEN /hpf (5-10); White Blood Cells 0 SEEN /hpf (0-5)
[2024-10-18 23:12] LABS: Color, Urine Yellow (Yellow); Glucose, Dipstick Normal (Normal); Ketone-Dipstick Negative (Negative); Leukocyte Esterase-Dipstick Negative /ul (Negative); Nitrite-Dipstick Negative (Negative); Occult Blood-Urine 10 /ul (Negative); Protein-Dipstick Negative (Negative); Specific Gravity, Urine 1.015 (1.002-1.030); Urine Bilirubin Dipstick Negative (Negative); Urine Clarity Clear (Clear); Urine Urobilinogen Normal (Normal); Urine pH 6.5 (5.0 - 8.0)
[2024-10-18 23:21] LABS: Anion Gap 12 (5-15); BUN 19 mg/dL (4-19); BUN/Creat Ratio 21.4 RATIO (10-20); Carbon Dioxide 24.6 mmol/L (21.0-32.0); Chloride 104 mmol/L (98-108); Creatinine, Serum 0.87 mg/dL (0.70-1.20); EST Glomerular Filtration Rate 74 (>60); Estimated Creatinine Clearance 72.62 ml/min (50-250); Glucose 106 mg/dL (70-99); Potassium 3.6 mmol/L (3.3-5.1); Sodium Level 140 mmol/L (133-145)
--- NOTE | 2024-10-18 23:31 | RAD_ITS ---
PROCEDURE: CHEST PA AND LATERAL 10/18/2024 REASON FOR EXAM: DIZZINESS TECHNIQUE: CHEST PA AND LATERAL COMPARISON: Prior chest CT from 11/04/2023 and 10/29/2022 FINDINGS: 2.2 x 2.2 cm opacity within the right midlung likely a pulmonary nodule as seen on multiple prior CTs. No focal consolidations. No pleural effusion or pneumothorax. Cardiac silhouette is unchanged. No acute fractures. RAD/Chest PA and Lateral IMPRESSION: Again seen is a 2.2 cm circular right midlung nodule. No focal consolidations. No pleural effusion or pneumothorax. Reading Location: [id number]
[2024-10-18 23:32] LABS: D-Dimer Quantitative (DVT/PE) 0.31 FEU/ug/m (0.27-0.49)
[2024-10-18 23:37] LABS: Troponin T High Sensitivity 6 ng/L (<=14)
[2024-10-19 00:20] VITALS: BP 121/49; PULSE 64; RESP 20; O2SAT 95
--- NOTE | 2024-10-19 00:23 | PCM.HP.STD ---
HPI - General General Date of Admission: 10/19/24 Date of Service: 10/19/24 Chief Complaint: Vertigo. HPI Narrative RUSSELL DSOUZA, is a 64 F with a past medical history of essential hypertension; on amlodipine, obesity; with BMI of 35 this admission, who presents [facility] Medical History Adhesive capsulitis of right shoulder Lung nodule Seasonal allergies Hypertension Home Medications ?Medication ?Instructions ?Recorded ?Last Taken ?Type calcium 600 mg (as 600 cap PO BID 12/21/20 Unknown History carbonate)-vitamin D3 12.5 mcg (500 unit) capsule (Calcium with Vit D3) amlodipine 5 mg tablet 5 mg PO BID #180 tabs 12/09/23 Unknown Rx Allergy/AdvReac Type Severity Reaction Status Date / Time codeine AdvReac Other Verified 12/12/23 07:41 Family History Mother Breast cancer CVA (cerebral vascular accident) Hypertension Osteoporosis Alcoholism Other Depression with anxiety Surgical History History of appendectomy Social History Smoking Status: Current every day smoker tobacco type: cigarettes Tobacco: How many years used: 40 alcohol intake: never substance use type: does not use what type of physical activity do you participate in: walking frequency: daily Vital Signs Vital Signs Vital Signs: 10/18/24 22:16 10/18/24 22:55 10/19/24 00:20 Temperature 98.4 F Temperature Source Oral Pulse Rate 64 64 Pulse Rate [Lying] 66 Respiratory Rate 18 20 H Blood Pressure 156/72 H 121/49 H Blood Pressure [Lying] 156/76 H Blood Pressure Mean 100 73 Blood Pressure Mean [Lying] 102 Pulse Ox 96 95 Oxygen Delivery Method Room Air Room Air Weight Weight: 210 lb 1.608 oz Body Mass Index (BMI) 34.9 Results Lab / Micro Data 10/18/24 22:45 10/18/24 22:45 Labs: Laboratory Results - last 24 hr 10/18/24 22:45: WBC 12.0 H, RBC 4.46, Hgb 13.6, Hct 39.9, MCV 89.5, MCH 30.5, MCHC 34.1, RDW Std Deviation 40.5, RDW Coeff of [place] 12.4, Plt Count 247, MPV 9.2, Immature Gran % (Auto) 0.400, Neut % (Auto) 73.6 H, Lymph % (Auto) 17.1 L, [place] % (Auto) 7.6, Eos % (Auto) 0.7, Baso % (Auto) 0.6, Absolute Neuts (auto) 8.9 H, Absolute Lymphs (auto) 2.06, Nucleated RBC % 0, Sodium 140, Potassium 3.6, Chloride 104, Carbon Dioxide 24.6, Anion Gap 12, BUN 19, Creatinine 0.87, Estim Creat Clear Calc 72.62, Est GFR (MDRD) Non-Af 74, BUN/Creatinine Ratio 21.4 H, Glucose 106 H, Calcium 9.0, Troponin T High Sens 6 10/18/24 22:55: D-Dimer Quant (PE/DVT) Cancelled 10/18/24 23:00: Urine Color Yellow, Urine Clarity Clear, Urine pH 6.5, Ur Specific [place] 1.015, Urine Protein Negative, Urine Glucose (UA) Normal, Urine Ketones Negative, Urine Occult Blood 10 H, Urine Nitrite Negative, Urine Bilirubin Negative, Urine Urobilinogen Normal, Ur Leukocyte Esterase Negative, Urine RBC 0 SEEN, Urine WBC 0 SEEN, Ur Squamous Epith Cells 0 SEEN, Urine Bacteria 0 SEEN, Urine Mucus 0 SEEN 10/18/24 23:14: D-Dimer Quant (PE/DVT) 0.31 Imaging Radiology Impression Brain CT 10/18/24 22:32 IMPRESSION: Normal unenhanced CT scan of the brain. [id number] 10/18/24 23:31 IMPRESSION: Again seen is a 2.2 cm circular right midlung nodule. No focal consolidations. No pleural effusion or pneumothorax. Reading Location: [facility]
[2024-10-19] MEDS: Scopolamine 1mg/72hr Patch 1 PATCH TD (00:37)
--- OUTSIDE RECORDS SUMMARY | 2024-10-19 00:39 | XMS RPT_ITS | CCD ---
Author Organization [facility] Care Team Providers Care Glass Tube Bender Name Role Phone Dr. Thelma Ahumada Primary Care Provider Dr. Thelma Ahumada Attending Provider Dr. Thelma Ahumada Referring Provider MD Adilson Wilson Attending Provider Dr. Donald Smith Attending Provider [phone] Thelma Ahumada Primary Care Unavailable Thelma Ahumada Attending Unavailable Liliana Rosas NP Attending Unavailable Liliana Rosas NP Referring Unavailable Thelma Ahumada Primary Care Unavailable Thelma Ahumada Primary Care Unavailable Adilson Wilson Attending Unavailable Adilson Wilson Referring Unavailable Adilson Wilson Attending Unavailable Thelma Ahumada Primary Care Unavailable BrandynThelma Referring Unavailable BrandynThelma Primary Care Unavailable Donald Smith Attending Unavailable Adilson Wilson Attending Unavailable Thelma Ahumada Referring Unavailable Brandyn, Thelma Primary Care Unavailable Alison VERTICAL BORING MILL OPERATOR, Liliana Attending Unavailable Thelma Ahumada Referring Unavailable Brandyn, Thelma Primary Care Unavailable Thelma Ahumada Attending Unavailable Brandyn Thelma Primary Care Unavailable Allergies Allergy Classification Reported Allergen(s) Allergy Type Date of Onset Reaction(s) Facility (2 sources) Codeine Drug Allergy 06-20-2022 Other [facility] (1 source) Codeine Drug Allergy 12-12-2023 [facility] Repository Medications Current Medications Medication Drug Class(es) Dates Sig (Normalized) Sig (Original) [id number] 200 actuat albuterol 0.09 mg/actuat metered dose inhaler (4 sources) beta2-Adrenergic Agonist Start: 01-30-2021 End: 12-13-2021 take 1 puff(s) by inhalation every four hours Albuterol Sulfate (Ventolin Hfa) 90 mcg/actuation HFA aerosol inhaler Active 2 PUFF INHALATION Q4H 18 December 13, 2021 8:49am amLODIPine 5 mg oral tablet (15 sources) Dihydropyridine Calcium Channel Cruz Start: 06-27-2020 End: 12-10-2022 take 5 mg by mouth twice daily Amlodipine Active 5 MG PO TWICE A DAY December 10, 2022 11:27am Start: 06-05-2020 End: 06-27-2020 take 5 mg by mouth once daily Amlodipine Discontinued 5 MG PO DAILY June 09, 2020 4:54pm June 27, 2020 8:05am calcium carbonate 1500 mg / cholecalciferol 500 unt oral capsule (2 sources) Vitamin D Start: 12-21-2020 take 1 capsule by mouth twice daily Calcium Carbonate-Vitamin D3 (Calcium 600 With Vitamin D3) 600 mg(1,500mg) -500 unit capsule Active 600 CAP PO TWICE A DAY December 20, 2020 11:00pm fluticasone propionate 0.05 mg/actuat metered dose nasal spray (7 sources) Corticosteroid Start: 06-21-2021 End: 12-10-2022 take 1 spray(s) nasal route once daily at bedtime Fluticasone Propionate Active 1 SPRAY INTRANASAL DAILY December 10, 2022 9:04am Administer into each nostril daily at bedtime for one month. Fluticasone Propion-Salmeterol (2 sources) Corticosteroid, beta2-Adrenergic Agonist Start: 06-03-2023 Fluticasone Propion-Salmeterol Active 1 INH INHALATION TWICE A DAY 180 June 03, 2023 12:00am Start: 12-13-2022 End: 06-03-2023 Fluticasone Propion-Salmeter ol (Wixela Inhub) 500-50 mcg/dose blister with device Discontinued 1 INH INHALATION TWICE A DAY 60 December 12, 2022 11:00pm June 03, 2023 8:38am Completed/Discontinued Medications Medication Drug Class(es) Dates Sig (Normalized) Sig (Original) betamethasone 0.5 mg/ml / clotrimazole 10 mg/ml topical cream (1 source) Azole Antifungal, Corticosteroid Start: 12-10-2022 End: 06-18-2023 Clotrimazole-Beta methasone Discontinued 1 APPLIC TOPICAL TWICE A DAY 15 10 December 09, 2022 11:00pm June 18, 2023 2:31pm Budesonide-Formoter ol (5 sources) Corticosteroid, beta2-Adrenergic Agonist Start: 12-10-2022 End: 12-13-2022 take 1 puff(s) by inhalation twice daily Budesonide-Formot laurie (Symbicort) 160-4.5 mcg/actuation HFA aerosol inhaler Discontinued 2 PUFF INHALATION TWICE A DAY December 10, 2022 9:03am December 13, 2022 8:37am Start: 12-13-2021 End: 12-10-2022 take 1 puff(s) by inhalation twice daily Budesonide-Formoterol (Symbicort) 160-4.5 mcg/actuation HFA aerosol inhaler Discontinued 2 PUFF INHALATION TWICE A DAY 10.2 December 13, 2021 8:49am December 10, 2022 9:04am Start: 12-13-2021 take 1 puff(s) by in halation twice daily Budesonide-Formoterol (Symbicort) 160-4.5 mcg/actuation HFA aerosol inhaler Active 2 PUFF INHALATION TWICE A DAY 10.2 December 13, 2021 9:49am Start: 05-16-2021 End: 12-13-2021 take 1 puff(s) by inhalation twice daily Budesonide-Formoterol (Symbicort) 160-4.5 mcg/actuation HFA aerosol inhaler Discontinued 2 PUFF INHALATION TWICE A DAY 10.2 May 16, 2021 12:00am December 13, 2021 8:49am Start: 05-16-2021 End: 12-13-2021 take 1 puff(s) by inhalation twice daily Budesonide-Formoterol (Symbicort) 160-4.5 mcg/actuation HFA aerosol inhaler Discontinued 2 PUFF INHALATION TWICE A DAY 10.2 May 16, 2021 1:00am December 13, 2021 9:49am methylPREDNISolone 4 mg oral tablet (1 source) Corticosteroid Start: 06-03-2023 End: 06-18-2023 take 1 tablet by mouth once Methylprednisolone (Medrol (Jack)) 4 mg tablets,dose pack Discontinued 0 PO per package directions June 03, 2023 12:00am June 18, 2023 2:32pm PO PER PKG DIR Problems Active Problems Problem Classification Problem Date Documented Da te Episodic/Chronic Chronic obstructive pulmonary disease and bronchiectasis (4 sources) Asthma-chronic obstructive pulmonary disease overlap syndrome; Translations: [Chronic obstructive pulmonary disease, unspecified] Onset: 01-02-2024 01-30-2021 Chronic Conditions associated with dizziness or vertigo (2 sources) Lightheadedness; Translations: [Dizziness and giddiness] 05-16-2021 Episodic Essential hypertension (4 sources) Hypertensive disorder; Translations: [Essential (primary) hypertension] Onset: 12-09-2023 06-09-2020 Chronic Nutritional deficiencies (1 source) Vitamin D deficiency, unspecified; Translations: [Vitamin D deficiency, unspecified] Onset: 12-09-2023 Chronic Other connective tissue disease (1 source) Adhesive capsulitis of right shoulder; Translations: [Adhesive capsulitis of right shoulder] 06-18-2023 Episodic Other lower respiratory disease (2 sources) Nodule of lung; Translations: [Solitary pulmonary nodule] 09-23-2020 Episodic Other nervous system disorders (2 sources) Tremor; Translations: [Tremor, unspecified] 05-16-2021 Episodic Other non-traumatic joint disorders (1 source) Disorder of shoulder; Translations: [Other specified joint disorders, unspecified shoulder] 06-10-2023 Episodic Other upper respiratory disease (2 sources) Seasonal allergy; Translations: [Other seasonal allergic rhinitis] 06-09-2020 Chronic Otitis media and related conditions (2 sources) Dysfunction of eustachian tube; Translations: [Unspecified Eustachian tube disorder, unspecified ear] 06-21-2021 Episodic Substance-related disorders (3 sources) Nicotine dependence; Translations: [Nicotine dependence, cigarettes, uncomplicated] Onset: 01-02-2024 12-27-2020 Chronic Past or Other Problems Problem Classification Problem Date Documented Da te Episodic/Chronic Other connective tissue disease (2 sources) Adhesive capsulitis of right shoulder; Translations: [Adhesive capsulitis of shoulder] Onset: 07-30-2023 06-18-2023 Episodic Other lower respiratory disease (1 source) Solitary pulmonary nodule; Translations: [Solitary pulmonary nodule] Onset: 01-02-2024 Episodic Other non-traumatic joint disorders (4 sources) Pain in right shoulder; Translations: [Right shoulder pain] Onset: 06-18-2023 06-03-2023 Episodic Results Test Name Value Interpretation Reference Range Facil ity Pulmonary Visit Reporton Pulmonary Visit Report [facility] [address] [place] [address] OFFICE VISIT Date of Service: 12/12/23 MR#: [id number] Acct: [id number] Name: RUSSELL DSOUZA Rep #: [id number] : 1960 Provider: ASHLEY Rosas Age/Sex: 63/F [facility] Status: Signed with Addenda ADDENDUM by Nella Foster on 04/28/24 at 1113 Office Procedure Documentation entered by Nella Foster 04/28/24 11:13: Smoking Cessation Smoking Cessation 12/12/23. Encourage complete smoking cessation. Repeat LDCT due in October 2024, ordered accordingly. Time Spent 3-10 minutes: Yes Date cc: Dr. Thelma Ahumada MD * Signed Assessment and Plan Assessment and Plan (1) Asthma-COPD overlap syndrome: Status: Chronic Plan: Stable, she does not appear to be an exacerbation of asthma/COPD today. No need for prednisone or antibiotic. Not currently requiring maintenance medication. She occasionally utilizes Wixela. No additional testing at this time. Contact the office for any new or worsening symptoms. An acute visit and typically be arranged within 1-2 days. Follow-up in 1 year. (2) Nicotine dependence, cigarettes, uncomplicated: Status: Chronic Plan: Encourage complete smoking cessation. Repeat LDCT due in October 2024, ordered accordingly. Orders: Orders Low Dose CT Lung Screening 10/27/24 F17.200 - Nicotine dependence, unspecified, uncomplicated, F17.210 - Nicotine dependence, cigarettes, uncomplicated, R91.1 - Solitary pulmonary nodule Medications: Refilled albuterol sulfate 90 mcg/actuation (Ventolin HFA) 2 puffs inhalation Q4H PRN 18 grams 6RF shortness of breath or wheezing R91.1 - Solitary pulmonary nodule Plan Details Follow Up: 1 Year ([facility]) HPI 1 Y FU Chief Complaint: Routine follow-up HPI Comments Details: This patient presents to the office today for follow-up of her asthma/COPD overlap syndrome with history of lung nodule. She is ambulatory and currently on room air. She has not been seen in the ED or urgent care for any respiratory illness since her last office visit. She has not required any antibiotics or prednisone for any breathing problems. She continues to use ICS/LABA as needed. She does not feel it is necessary to use it daily. She is using Flonase daily. She has not recently needed to use her albuterol rescue inhaler. She only experiences shortness of breath on exertion. She denies any cough, sputum production or hemoptysis. She has not had any wheezing, chest tightness, chest pain or palpitations. She also denies any fever, chills or body aches. She continues to smoke cigarettes. She is currently smoking less than 1 pack per day. Test results personally reviewed with patient: CT scan of the chest completed on October. Noted is a stable 2 cm wall defined nodule in the superior posterior segment of the right lower lobe. Also a stable 4.5 mm noncalcified nodule in the left lower lobe. Recommendation is continue annual screening with LDCT in 12 months. Intake Vital Signs 12/13/22 07:50 06/03/23 08:10 12/09/23 08:06 12/12/23 07:39 Height 5 ft 5.5 in 5 ft 5.5 in 5 ft 5.5 in 5 ft 5.5 in Weight: 204 lb 201 lb BMI 33.4 32.9 BP 126/84 H 138/88 H Blood Pressure Location Lt brachial Lt brachial Position Sitting Sitting Respiration 18 20 H Pulse 70 67 Pulse Source Monitor Monitor Temp 97.8 F 96.7 F L Temperature Source Temporal Artery Pulse Oximetry (%) 95 95 Oxygen Delivery Method room air room air Oxygen Flow Rate (L/min) 97. Intake Visit Reasons: 1 Y FU Supervisor Molding Required: No DME Vendor: n/a Accompanied by: Self Is patient in pain?: No Allergies codeine Adverse Reaction (Verified 12/12/23 07:41) Other Medications ???Medication ???Instructions ???Recorded ???Confirmed ???Type calcium carbonate 600 mg-vitamin 600 cap PO BID 12/21/20 12/12/23 History D3 12.5 mcg (500 unit) capsule (Calcium 600 with Vitamin D3) fluticasone propionate 50 1 spray intranasal DAILY PRN 12/10/22 12/12/23 History mcg/actuation nasal spray,suspension fluticasone 500 mcg-salmeterol 50 1 inh inhalation BID #180 ea 06/03/23 12/12/23 Rx mcg/dose blistr powdr for inhalation amlodipine 5 mg tablet 5 mg PO BID #180 tabs 12/09/23 12/12/23 Rx albuterol sulfate 90 mcg/actuation 2 puff inhalation Q4H PRN 12/12/23 12/12/23 Rx aerosol inhaler (Ventolin HFA) shortness of breath or wheezing #18 grams Have you fallen in the past year?: No PFSH Medical History (Reviewed 12/12/23 @ 07:50 by Liliana Rosas VERTICAL BORING MILL OPERATOR, VERTICAL BORING MILL OPERATOR-C) Adhesive capsulitis of right shoulder Lung nodule Seasonal allergies Hypertension Surgical History ... Normal [facility] MR/BMS.Efra 12-09-2023 MR/BMS.[facility] [address] [place] [address] OFFICE VISIT Date of Service: 12/09/23 MR#: [id number] Acct: [id number] Name: RUSSELL DSOUZA Rep #: [id number] : 1960 Provider: Dr. Thelma lovell MD Age/Sex: 63/F Location[place] [facility] Status: Signed Intake Vital Signs 12/10/22 10:02 06/03/23 08:10 12/09/23 08:06 Height 5 ft 5.5 in 5 ft 5.5 in 5 ft 5.5 in Weight: 204 lb BMI 33.4 BP 126/84 H Blood Pressure Location Lt brachial Position Sitting Respiration 18 Pulse 70 Pulse Source Monitor Temp 97.8 F Temp Source Temporal Pulse Oximetry (%) 95 Oxygen Delivery Method room air Oxygen Flow Rate (L/min) 97. Intake Visit Reasons: 1 Y FU Chief Complaint: Annual Wellness Visit Supervisor Molding Required: No Accompanied by: Self Is patient in pain?: No Allergies codeine Adverse Reaction (Verified 12/09/23 08:04) Other Medications ???Medication ???Instructions ???Recorded ???Confirmed ???Type calcium carbonate 600 mg-vitamin 600 cap PO BID 12/21/20 12/09/23 History D3 12.5 mcg (500 unit) capsule (Calcium 600 with Vitamin D3) albuterol sulfate 90 mcg/actuation 2 puff inhalation Q4H PRN 12/13/21 12/09/23 Rx aerosol inhaler (Ventolin HFA) shortness of breath or wheezing #18 grams fluticasone propionate 50 1 spray intranasal DAILY PRN 12/10/22 12/09/23 History mcg/actuation nasal spray,suspension fluticasone 500 mcg-salmeterol 50 1 inh inhalation BID #180 ea 06/03/23 12/09/23 Rx mcg/dose blistr powdr for inhalation amlodipine 5 mg tablet 5 mg PO BID #180 tabs 12/09/23 12/09/23 Rx Have you fallen in the past year?: No PFSH Medical History Adhesive capsulitis of right shoulder Lung nodule Seasonal allergies Hypertension Surgical History History of appendectomy Family History Mother Breast cancer CVA (cerebral vascular accident) Hypertension Osteoporosis Alcoholism Other Depression with anxiety Social History Smoking Status: Current every day smoker tobacco type: cigarettes Tobacco: How many years used: 40 alcohol intake: never substance use type: does not use what type of physical activity do you participate in: walking frequency: daily HPI HPI Chief Complaint: Annual Wellness Visit Details: RUSSELL DSOUZA, is a 63 F who presents to the office today for hypertension. 63-year-old female. Long- term smoker. She does have a lung nodule for which she is following with Dr. Farah. She had a low- dose CT scan in October again showing stability of a couple of small nodules. She is not having any adverse pulmonary issues right now. She does have Ventolin HFA as needed and has had rare use. She is on amlodipine 5 mg p.o. twice daily. She is desired to have minimal preventative things done otherwise including mammogram, colonoscopy. She is not experiencing any episodes of chest pain, chest tightness, shortness of breath, wheeze, cough, congestion, fever, chills, nausea or vomiting. Bowel movements have been regular. No dark black or bloody stools are reported. No dysuria, urgency or frequency reported. Review of systems per chart. Physical exam. Vital signs on chart. Wears corrective lenses. PERRLA. Sclera are clear. TMs are unremarkable with normal light reflexes. Canals are unremarkable. Posterior pharynx is unremarkable. Upper and lower plates. No cervical or supraclavicular lymph nodes enlarged or tender. No clear thyromegaly. No thyroid nodules readily palpable. Lungs are without wheeze, rhonchi, rales. No E/A changes are heard. Heart is regular. Not tachycardic. No clear murmur, rub, or gallop is identified. The abdomen is soft. Bowel sounds are present. Normal dorsalis pedis and posterior tibial pulses. No significant leg edema. Cranial nerve examination 2 through 12 are grossly unremarkable nonlateralizing. No obvious rashes. No obvious significant skin lesions. ROS Const Constitutional: No body ache, chills, excessive sweating, fatigue, fever(s), frequent falls, headache(s), night sweats, snoring, weakness, weight change, sleep problems or change in appetite Eyes Eyes: No blurry vision, change in vision, eye pain or Light sensitivity ENT ENT: No abnormal hearing, ear or mastoid pain, tinnitus, nasal congestion, headache(s), neck pain or sore throat Resp Respiratory: Positive for wheezing; No cough, shortness of breath or snoring Cardio Cardiology: No chest pain at rest, chest pain with exertion, excessive sweating, shortness of breath, dyspnea on exertion, lightheadedness, orthopnea or palpitations Gastro GI: No abdominal pain, change in tigre (more content not included)... Normal [facility] Low Dose CT Lung Screeningon 11-04-[address] Lung Screening [facility] [address] [place] [address] Lung Screening MR#: [id number] Acct: [id number] Name: RUSSELL DSOUAZ Rep #: [id number] : 1960 F 63 From: Justen arenas MD PCP: Dr. Thelma Ahumada MD Status: [facility] Study: Low Dose CT Lung Screening Date of Exam: 11/03 Exam# [id number] Ordering Dr: Liliana Rosas VERTICAL BORING MILL OPERATOR VERTICAL BORING MILL OPERATOR-C [id number] STUDY: LOW DOSE CT LUNG CANCER SCREENING REASON FOR EXAM: Female, 63 years old. Smoker and gt;40 pack years RADIATION DOSAGE (If Supplied By Facility): CTDIvol = ( 4.02 ) mGy, DLP = ( 142.95 ) mGycm TECHNIQUE: No contrast was administered. Low dose technique was utilized (average mAS-38 and kVp 120). 1.25 mm axial source images with a slice interval of 1.25-mm were reconstructed in lung windows. 2.5 mm axial source images with a slice interval of 2.5-mm were reconstructed in lung windows. 5.0 mm axial source images with a slice interval of 5.0-mm were reconstructed in soft tissue windows. COMPARISON: Comparison is made with prior study dated October 29, 2022. NODULES: Stable 2 cm well-defined nodule in the superior posterior segment of the right lower lobe as seen on axial image #116. Stable 4.5 mm noncalcified nodule in the left lower lobe Emphysema: Stable scarring in the right lung apex. Endobronchial lesion: None Aorta: Atherosclerotic calcific plaques. CORONARY ARTERIES: Coronary artery calcification is seen. Heart: Unremarkable Pulmonary artery: Unremarkable Mediastinal nodes: Small mediastinal lymph nodes. Other chest and abdominal findings: CT/Low Dose CT Lung Screening IMPRESSION: Lung-RADS category 2 - Continue annual screening with LDCT in 12 months. IMPORTANT NOTES FOR USE: ACR Lung-RADS Version 1.1 Assessment Categories Release Date: 2018 Category: Coded 0-4 bases on nodule(s) with highest degree of suspicion. Negative screen is defined as categories 1 and 2; a positive screen is defined as categories 3 and 4. Category 3 and 4A nodules that are unchanged on interval CT should be coded as category 2, and individuals returned to screening in 12 months. Category 4X: Category 3 or 4 nodules with additional imaging findings that increase the suspicion of lung cancer, such as spiculation, GGN that doubles in size in 1 year, enlarged lymph notes, etc. Category Modifiers: S (significant finding unrelated to lung cancer) Electronically Signed: Justen Leo MD at 13:20 EDT , CC: ASHLEY Rosas; Dr. Thelma Ahumada MD Landscape Crew Leader: Signed Normal [facility] Orthopedic Visit Reporton Orthopedic Visit Report [facility] [address] [place] [address] [address] [place] [id number] OFFICE VISIT Date of Service: 07/30/23 MR#: [id number] Acct: [id number] Name: RUSSELL DSOUZA Rep #: [id number] : 1960 Provider: Dr. Adilson barber MD Age/Sex: 62/F Location[facility] Status: Signed Intake Vital Signs 06/03/23 08:10 Height 5 ft 5.5 in Weight: 216 lb 2 oz BMI 35.4 BP 128/78 H Blood Pressure Location Lt brachial Position Sitting Respiration 16 Pulse 91 Pulse Source Monitor Temp 98.1 F Temp Source Temporal Pulse Oximetry (%) 93 Oxygen Delivery Method room air Intake Visit Reasons: RIGHT SHOULDER Accompanied by: Self Is patient in pain?: No Allergies codeine Adverse Reaction (Verified 07/30/23 08:21) Other Medications calcium carbonate 600 mg-vitamin D3 12.5 mcg (500 unit) capsule (Calcium 600 with Vitamin D3) 600 cap PO BID 12/21/20 [History Confirmed 07/30/23] albuterol sulfate 90 mcg/actuation aerosol inhaler (Ventolin HFA) 2 puff inhalation Q4H PRN shortness of breath or wheezing #18 grams 12/13/21 [Rx Confirmed 07/30/23] amlodipine 5 mg tablet 5 mg PO BID #180 tabs 12/10/22 [Rx Confirmed 07/30/23] fluticasone propionate 50 mcg/actuation nasal spray,suspension 1 spray intranasal DAILY PRN 12/10/22 [History Confirmed 07/30/23] fluticasone 500 mcg-salmeterol 50 mcg/dose blistr powdr for inhalation 1 inh inhalation BID #180 ea 06/03/23 [Rx Confirmed 07/30/23] [facility] Medical History (Updated 06/18/23 @ 14:40 by Adilson Wilson MD) Adhesive capsulitis of right shoulder Hypertension Lung nodule Seasonal allergies Surgical History History of appendectomy Family History Mother Breast cancer CVA (cerebral vascular accident) Hypertension Osteoporosis Alcoholism Other Depression with anxiety Social History Smoking Status: Current every day smoker tobacco type: cigarettes Tobacco: How many years used: 40 alcohol intake: never substance use type: does not use what type of physical activity do you participate in: walking frequency: daily HPI RIGHT SHOULDER Details: This documentation accurately reflects the service provided and the decisions made by me, Dr. Adilson Wilson MD 07/30/23 0819. Part of today???s visit was documented by [ ], acting as scribe. RUSSELL DSOUZA is a 62 year old F here today for 6 wks FU R shoulder adhesive capsulitis injection. doing very well, regained full ROM. mild pain lateral with lifting, but otherwise quite happy. has cut back on sweets. lost a bit of weight Ortho Exam General General: Yes no acute distress Neurologic: Yes alert and Yes oriented x3 Psychologic: Yes reasonable and appropriate Right Shoulder Skin/Wound: Yes CDI, No ecchymosis, No erythema and No swelling Contralateral Normal: Yes Testing: Negative Hawkin's, Neer's, Speed's, TTP Biceps, TTP AC Joint, Drop Arm or empty can SHOULDER: active / passive fe 170, er 50, IR l3. Coding Level of Care Code Off vis,est,level 3 Diagnoses Adhesive capsulitis of right shoulder M75.01 Assessment and Plan Assessment and Plan (1) Adhesive capsulitis of right shoulder: Status: Acute Plan: RUSSELL DSOUZA is a 62 year old F here today for 6 wks FU R shoulder adhesive capuslitis injection. Did very well with the injection. Recommend continue stretching and gentle ROM, FU PRN. Her hg a1c borderline out of range high - so would recommend to FU on that with her GP and keep an eye on glucose level. 07/30/23 0833 Date Adilson Wilson MD Cosigner Signature: Date (if applicable) CC: Normal [facility] Hemoglobin A1con 06-18-2023 HbA1c (Bld) [Mass fraction] 5.7 % High 3.8-5.6 [facility] Comment on above: Result Comment: Norm al < 5.7 % Prediabetic 5.7 - 6.4 % Diabetic >or= 6.5 % Please note range changes. Performed By: #### L [id number] #### [facility] [address] [place], [address] Orthopedic Visit Reporton Orthopedic Visit Report [facility] [address] [place] [id number] OFFICE VISIT Date of Service: 06/18/23 MR#: [id number] Acct: [id number] Name: RUSSELL DSOUZA Rep #: [id number] : 1960 Provider: Dr. Adilson barber MD Age/Sex: 62/F Location[facility] Status: Signed with Addenda ADDENDUM by Eli Umana on 06/18/23 at 1523 Office Procedure Documentation entered by Eli Umana 06/18/23 15:23: Ortho Injections Injections Details: Obtained consent for injection. Under sterile conditions, injected the patients right shoulder with 2mL Kenalog and 4mL Bupivacaine. The patient tolerated the injection well without any noted complication. Patient should call our office if redness develops, pain worsens or if they have any concerns. Office Meds Kenalog 40 mg/mL suspension for injection Performing Provider: Adilson Wilson MD Performing Location: [facility] Administered by: Adilson Wilson MD on 06/18/23 15:21 Dose Route Admin Location Dispensed Lot Number Expiration Date NDMaribel Vazquez ufacturer 80 mg intra-articular Right shoulder 2 mL [id number] 07/28/25 0550-0398-87 [facility] Date cc: * Signed Intake Vital Signs 06/03/23 08:10 Height 5 ft 5.5 in Weight: 216 lb 2 oz BMI 35.4 BP 128/78 H Blood Pressure Location Lt brachial Position Sitting Respiration 16 Pulse 91 Pulse Source Monitor Temp 98.1 F Temp Source Temporal Pulse Oximetry (%) 93 Oxygen Delivery Method room air Intake Visit Reasons: RIGHT SHOULDER Is patient in pain?: Yes Pain scale (1-10): 1 Allergies codeine Adverse Reaction (Verified 06/18/23 14:30) Other Medications calcium carbonate 600 mg-vitamin D3 12.5 mcg (500 unit) capsule (Calcium 600 with Vitamin D3) 600 cap PO BID 12/21/20 [History Confirmed 06/18/23] albuterol sulfate 90 mcg/actuation aerosol inhaler (Ventolin HFA) 2 puff inhalation Q4H PRN shortness of breath or wheezing #18 grams 12/13/21 [Rx Confirmed 06/18/23] amlodipine 5 mg tablet 5 mg PO BID #180 tabs 12/10/22 [Rx Confirmed 06/18/23] fluticasone propionate 50 mcg/actuation nasal spray,suspension 1 spray intranasal DAILY PRN 12/10/22 [History Confirmed 06/18/23] fluticasone 500 mcg-salmeterol 50 mcg/dose blistr powdr for inhalation 1 inh inhalation BID #180 ea 06/03/23 [Rx Confirmed 06/18/23] PFSH Medical History (Updated 06/18/23 @ 14:40 by Adilson Wilson MD) Adhesive capsulitis of right shoulder Hypertension Lung nodule Seasonal allergies Surgical History History of appendectomy Family History Mother Breast cancer CVA (cerebral vascular accident) Hypertension Osteoporosis Alcoholism Other Depression with anxiety Social History Smoking Status: Current every day smoker tobacco type: cigarettes Tobacco: How many years used: 40 alcohol intake: never substance use type: does not use what type of physical activity do you participate in: walking frequency: daily HPI RIGHT SHOULDER Details: This documentation accurately reflects the service provided and the decisions made by me, Dr. Adilson Wilson MD 06/18/23 [id number]. Part of today???s visit was documented by [ ], acting as scribe. RUSSELL DSOUZA is a 62 year old F here today for 3 months hx of shoulder pain, muscle was sore after using backpack leaf blower, LHD, lateral humerus shoulder pain. 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 [place] - steroid oral course. 1-06/08 today, on average '100'. night time - yes - wakes up in pain. Ortho Exam General General: Yes no acute distress Neurologic: Yes alert and Yes oriented x3 Psychologic: Yes reasonable and appropriate Right Shoulder Skin/Wound: Yes CDI, No ecchymosis, No erythema and No swelling Contralateral Normal: Yes Testing: Negative Hawkin's, Neer's, Speed's, TTP Biceps, TTP AC Joint, Drop Arm or empty can SHOULDER: Active and passive forward elevation 90 degrees external rotation 5 to 10 degrees immediate motion of the scapula with attempted humeral range of motion testing. Severe pain at the end ranges of motion. Normal sensation and motor function of the upper extremity including axillary nerve as well as throughout the hand. Supplemental Info X-rays 4 views of the right shoulder obtained today. Glenohumeral joint space is well-maintained. Moderate AC joint arthrosis. No fractures or other acute abnormalities. 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 Normal [facility] Shoulder min 2 Viewson 06-18 Shoulder min 2 Views [facility] [address] [place] [address] Shoulder min 2 Views MR#: [id number] Acct: [id number] Name: RUSSELL DSOUZA Rep #: [id number] : 1960 F 62 From: Justen arenas MD PCP: Dr. Thelma Ahumada MD Status: DEP AMB Study: Shoulder min 2 Views Date of Exam: 06/18/23 Exam# [id number] Ordering [place]: [place] [id number] STUDY: X-RAY - RIGHT SHOULDER REASON FOR EXAM: Female, 62 years old. Right shoulder pain. TECHNIQUE: 4 view(s) of the shoulder. COMPARISON: None. FINDINGS: Normal glenohumeral articulation. Normal acromioclavicular joint. Normal acromion. Normal humeral head and visualized proximal humerus. There is periarticular soft tissue calcification consistent with a calcific tendinitis. There is a 2 cm x 2 cm right lower lobe pulmonary nodule. RAD/Shoulder min 2 Views IMPRESSION: Mild degree of calcific tendinitis. 2 cm x 2 cm right lower lobe pulmonary nodule. Electronically Signed: Justen Leo MD at 15:32 EST , CC: Dr. Thelma Ahumada MD; Dr. 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 Ligia 06-03-2023 /[facility] [address] [place], [place] [id number] OFFICE VISIT Date of Service: 06/03/23 MR#: [id number] Acct: [id number] Name: RUSSELL DSOUZA Rep #: [id number] : 1960 Provider: Dr. Thelma lovell MD Age/Sex: 62/F Location: [facility] Status: Signed Intake Vital Signs 12/13/22 07:50 06/03/23 08:10 Height 5 ft 5.5 in 5 ft 5.5 in Weight: 209 lb 216 lb 2 oz BMI 34.2 35.4 BP 126/76 H 128/78 H Blood Pressure Location Lt brachial Lt brachial Position Sitting Sitting Respiration 18 16 Pulse 70 91 Pulse Source Monitor Monitor Temp 96.8 F L 98.1 F Temp Source Temporal Pulse Oximetry (%) 97 93 Oxygen Delivery Method room air room air Intake Visit Reasons: RT Arm Pain Chief Complaint: right arm pain x couple months unknown origin Supervisor Molding Required: No Is patient in pain?: Yes (right arm pain) Pain scale (1-10): 1 Allergies codeine Adverse Reaction (Verified 06/03/23 08:11) Other Medications calcium carbonate 600 mg-vitamin D3 12.5 mcg (500 unit) capsule (Calcium 600 with Vitamin D3) 600 cap PO BID 12/21/20 [History Confirmed 06/03/23] albuterol sulfate 90 mcg/actuation aerosol inhaler (Ventolin HFA) 2 puff inhalation Q4H PRN shortness of breath or wheezing #18 grams 12/13/21 [Rx Confirmed 06/03/23] amlodipine 5 mg tablet 5 mg PO BID #180 tabs 12/10/22 [Rx Confirmed 06/03/23] clotrimazole-betamethas one 1 %-0.05 % topical cream 1 applic topical BID 10 days #15 grams 12/10/22 [Rx Confirmed 06/03/23] fluticasone propionate 50 mcg/actuation nasal spray,suspension 1 spray intranasal DAILY PRN 12/10/22 [History Confirmed 06/03/23] fluticasone 500 mcg-salmeterol 50 mcg/dose blistr powdr for inhalation 1 inh inhalation BID #180 ea 06/03/23 [Rx Confirmed 06/03/23] methylprednisolone 4 mg tablets in a dose pack (Medrol (Jack)) See Rx Instructions PO PER PKG DIR #21 tabs 06/03/23 [Rx Confirmed 06/03/23] PFSH Medical History Hypertension Lung nodule Seasonal allergies Surgical History History of appendectomy Family History Mother Breast cancer CVA (cerebral vascular accident) Hypertension Osteoporosis Alcoholism Other Depression with anxiety Social History Smoking Status: Current every day smoker tobacco type: cigarettes Tobacco: How many years used: 40 alcohol intake: never substance use type: does not use what type of physical activity do you participate in: walking frequency: daily HPI HPI Chief Complaint: right arm pain x couple months unknown origin Details: RUSSELL DSOUZA, is a 62 F who presents to the office today for an acute care visit. She has been having ongoing right shoulder pain. Started a couple of months ago, just a sense of feeling sore but now more intense sharp pain but not continuous. It is movement related, with attempts at elevating her right arm above her head, or certain rotational movements about the shoulder. She perceives the pain in the deltoid region for the most part. She has been using ice, some heat but really applying most of that to the deltoid area and not the shoulder per se. There was no acute trauma anytime recent. No prior history of any shoulder or rotator cuff issues. She states at the onset of this, she was doing leaf blowing with her backpack leaf blower. 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 She was using the right arm quite a bit for a while, multiple days, swinging [id number] and up and down with the leaf blower nozzle. No focal areas of numbness or tingling. Review of systems per chart. Physical exam. Vital signs on chart. My exam is focused. SHOULDER EVALUATION Inspection -unremarkable right Lelia's test (Supraspinatus) -normal strength right with discomfort. External rotation (Infrasinatus) -normal strength right, with discomfort. [place]'s Lift Off (Subscapularis) -able to perform with significant discomfort but muscle strength appears intact. [place] test (Subscapularis) - Painful drop-arm - Arc - Sulcus sign -negative right. Passive painful arc (Neer) -positive right. Reyes-Tejeda -positive right. BICEP Speeds test -negative right. Yergason's test -negative right. SLAP Active-compression (O'Briens sign) -some suggestion on exam of possible labral injury but complicated with the indications of impingement as well. Crank test - ROS Const Constitutional: No body ache, chills, excessive sweating, fatigue, fever(s), frequent falls, headache(s), snoring, weakness, weight change, sleep problems or change in appetite Eyes Eyes: No blurry vision, change in vision, eye (more content not included)... Normal [facility] Vital Signs Date Time Vital Sign Value Performing Clinician Demetris wood 06-03-2023 08:10-0500 Body height 166.[address] Thelma Ahumada Work Phone: [facility] 06-03-2023 08:10-0500 Body mass index (BMI) [Ratio] 35.4 kg/m2 Dr. Thelma Ahumada Work Phone: [facility] 06-03-2023 08:10-0500 Body temperature 98.1 [degF] Dr. Thelma Ahumada Work Phone: [facility] 06-03-2023 08:10-0500 Body weight 98.[address] Thelma Ahumada Work Phone: [facility] 06-03-2023 08:10-0500 Diastolic blood pressure 78 mm[Hg] Dr. Thelma Ahumada Work Phone: [facility] 06-03-2023 08:10-0500 Heart rate 91 /min Dr. Thelma Ahumada Work Phone: [facility] 06-03-2023 08:10-0500 Respiratory rate 16 /min Dr. Thelma Ahumada Work Phone: [facility] 06-03-2023 08:10-0500 SaO2% (BldA) [Mass fraction] 93 % Dr. Thelma Ahumada Work Phone: [facility] 06-03-2023 08:10-0500 Systolic blood pressure 128 mm[Hg] Dr. 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 Thelma Ahumada Work Phone: [facility] Work Phone: Start: 06-18-2023 End: 06-18-[address] Thelma Ahumada Work Phone: [facility] Work Phone: Start: 06-18-2023 End: 06-18-2023 ambulatory Thelma Ahumada Facility:[facility] Start: 06-03-2023 End: 06-03-[address] Thelma Ahumada Work Phone: [facility] Work Phone: Start: 06-03-2023 End: 06-03-2023 ambulatory Thelma Ahumada Facility:[facility] Start: 10-29-2022 End: 10-29-2022 ambulatory [facility] Work Phone: Start: 10-29-2022 End: 10-29-2022 Patient encounter procedure [facility]-Cat Scan, [facility] Work Phone: Procedures Date Procedure Procedure Detail Performing Clinician Start: 06-18-2023 Plain X-ray of shoulder Dr. Thelma Ahumada Work Phone: Start: 10-29-2022 CT of chest without contrast Payers Date Payer Category Payer Self-pay [id number] 2023 Private Health Insurance [id number] 2022 Private Health Insurance 101 [id number] Unknown [employer] [id number] Unknown [id number] 2.16.8 [id number] Unknown [id number] 2.16.8 [id number] Unknown [id number] 2.16.8 [id number] Unknown [id number] 2.16.8 [id number] Unknown [id number] 2.16.8 [id number] Unknown [id number] 2.16.8 [id number] Unknown [id number] 2.16.8 [id number] Unknown [id number] 2.16.8 [id number] Social History Date Type Detail Facility Start: 06-20-2022 End: 06-18-2023 Tobacco smoking status NHIS Unknown if ever smoked [facility] Start: 06-05-2020 None [facility] Start: 06-05-2020 With Family [facility] Start: 1960 Sex Assigned At Female [facility] Evaluation note Note Date & Type Note Facility Evaluation note No assessment information availa ble [facility] Work Phone: Evaluation note Note Date & Type Note Facility Evaluation note Diagnosis Onset Date Right shoulder pain acute Asthma-COPD overlap syndrome chronic Hypertension chronic Adhesive capsulitis of right shoulder acute Right shoulder pain acute [facility] Work Phone: Chief Complaint and Reason for Visit Chief Complaint LUNG NODULE Chief Complaint RT Arm Pain RIGHT SHOULDER Room 1 EORDER Reason for Visit Right shoulder pain Asthma-COPD overlap syndrome Hypertension Adhesive capsulitis of right shoulder Right shoulder pain Family History No Family History Records Found Relationship Condition Age at Onset Recorded Date/T ravindra Not Specified Anxiety with depression Unknown mother Malignant neoplasm of breast Unknown Cerebrovascular accident (CVA) Unknown Hypertension Unknown Osteoporosis Unknown Alcoholism Unknown Advance Directives No Advanced Directives Records Found Advance Directive Response Recorded Date/ Time Living Will Yes December 23 1 9:38am Power of Manager Land Yes December 23 9:38am Advance Directive Response Recorded Date/ Time Living Will Yes December 23 8:38am Power of Manager Land Yes December 23 8:38am Summary Purpose Additional Source Comments Care Teams (unrecognized sec tion and content) Team Status: Active Member Role Status Dates No Primary Care Physician Family Provider Active Dr. Thelma Ahumada MD Primary Care Provider Active Team Status: Inactive Member Role Status Dates Dr. Thelma Ahumada MD Primary Care Provider Active Dr. Dinesh Farah DO Attending Provider, Referring Pro vider Active Team Status: Inactive Member Role Status Dates Dr. Thelma Ahumada MD Primary Care Provider, Attendi ng Provider Active Team Status: Inactive Member Role Status Dates Dr. Thelma Ahumada MD Primary Care Provider, Referri ng Provider Active Adilson Wilson MD Attending Provider Active Team Status: Inactive Member Role Status Dates Dr. Thelma Ahumada MD Primary Care Provider Active Dr. Donald Smith MD Attending Provider Active Team Status: Inactive Member Role Status Dates Dr. Thelma Ahumada MD Primary Care Provider Active Adilson Wilson MD Attending Provider, Referring Prov ider Active Goals (unrecognized section and content) Goals may be documented in a n alternate sectionGoals may be documented in an alternate section INFORMATION SOURCE (unrecogn ized section and content) DATE CREATED AUTHOR 04/30/2024 [facility] FOR RECORDS PERTAINING TO PATIENTS WHO ARE OR HAVE BEEN ENROLLED IN A CHEMICAL DEPENDENCY/SUBSTANCEABUSE PROGRAM, SOME INFORMATION MAY BE OMITTED. This clinical summary was aggregated from multiple sources. Caution should be exercised in using it in the provision of clinical care. This summary normalizes information from multiple sources, and as a consequence, information in this document may materially change the coding, format and clinical context of patient data. In addition, data may be omitted in some cases. CLINICAL DECISIONS SHOULD BE BASED ON THE PRIMARY CLINICAL RECORDS. [employer] provides no warranty or guarantee of the accuracy or completeness of information in this document.
[2024-10-19 01:24] LABS: Troponin T High Sens 2 HR 7 ng/L (<=14)
[2024-10-19 01:42] VITALS: BP 131/92; PULSE 84; RESP 18; TEMP 36.7; O2SAT 94
== END 2024-10-19 01:46 | disposition home or self-care (01) ==
PROVIDERS: Emergency Provider Surgery; PCP Internal Medicine; Visit Provider Surgery
DX: R42 Dizziness and giddiness (principal); F17.210 Nicotine dependence, cigarettes, uncomplicated; I10 Essential (primary) hypertension; R91.8 Other nonspecific abnormal finding of lung field
CPT/HCPCS: 70450; 71046; 80048; 81001; 84484; 85025; 85379; 93005; 96361; 96374; 99285; P9612; J2405

== ENCOUNTER → 2024-11-03 | Outpatient (CLI) | payer MEDICARE, SELFPAY ==
--- NOTE | 2024-11-03 07:48 | CDU_ITS ---
Reason For Study Reason For Study: VERTIGO Rt. Velocities/BP Lt. Velocities/BP Prox CCA 122.2/23.6 cm/sec. Prox CCA 102.9/21.5 cm/sec. Mid CCA 116.7/27.2 cm/sec. Mid CCA 116.2/17.5 cm/sec. Dist CCA 84.5/18.6 cm/sec. Dist CCA 108.9/23.0 cm/sec. Prox ICA 64.6/15.5 cm/sec. Prox ICA 82.0/17.1 cm/sec. Mid ICA 76.9/19.2 cm/sec. Mid ICA 95.2/22.6 cm/sec. Dist ICA 68.3/21.6 cm/sec. Dist ICA 74.3/18.2 cm/sec. Rt. ICA/CCA = 76.9/116.7=0.7. Lt. ICA/CCA = 116.2/95.2=1.2. Prox ECA 95.3/10.6 cm/sec. Prox ECA 63.3/9.5 cm/sec. Rt. Vert. 29.6/11.1 cm/sec. Lt. Vert. 51.6/12.8 cm/sec. Right Extracranial There is intimal thickening but no significant atherosclerotic plaque noted in the right common carotid artery. There is intimal thickening but no significant atherosclerotic plaque noted in the right internal carotid artery. There is intimal thickening but no significant atherosclerotic plaque noted in the right external carotid artery. Antegrade flow is noted in the right vertebral artery. Left Extracranial There is intimal thickening but no significant atherosclerotic plaque noted in the left common carotid artery. There is no significant atherosclerotic plaque noted in the left internal carotid artery. The left internal carotid artery is very tortuous. There is no significant atherosclerotic plaque noted in the left external carotid artery. Antegrade flow is noted in the left vertebral artery. Procedure Carotid Duplex [id number]. This is a Carotid Duplex examination using B-mode, color flow and specral Doppler. The study was technically difficult. Exam performed in department. VL/Carotid Duplex Ultrasound Interpretation Summary Normal right extracranial internal carotid. Normal left extracranial internal carotid. Patent and antegrade vertebrals bilaterally. Ordering Physician: Thelma Ahumada Referring Physician: Thelma Ahumada Performed By: Teri Allen RDCS, RVT
== END | disposition home or self-care (01) ==
PROVIDERS: PCP Internal Medicine; Referring Provider Internal Medicine; Visit Provider Internal Medicine
DX: R42 Dizziness and giddiness (principal)
CPT/HCPCS: 93880

== ENCOUNTER → 2024-11-09 | Outpatient (CLI) | payer MEDICARE, SELFPAY ==
--- NOTE | 2024-11-09 06:15 | CT_ITS ---
PROCEDURE: LOW DOSE CT LUNG SCREENING 11/09/2024 REASON FOR EXAM: SMOKER 2 packs per day for 50 years. TECHNIQUE: LOW DOSE CT LUNG SCREENING Coronal and Sagittal reconstruction series were provided. One or more dose reduction techniques were used (e.g., Automated exposure control, adjustment of the mA and/or kV according to patient size, use of iterative reconstruction technique). REFERENCE LINK: [employer] Lung-RADS RADIATION DOSE SUMMARY: CTDlvol: 4.02 mGy DLP: 139.94 mGycm COMPARISON: Prior study dated November 04, 2023. FINDINGS: PULMONARY NODULES: (Only nodules >3mm are reported) Nodules described below are on series 1 unless otherwise specified. Pulmonary Nodules: Stable 2 cm well-defined nodule in the superior segment of the right lower lobe. Stable 4.5 mm nodule in the left lower lobe. Hardware:None Lymph Nodes:None Heart and Vasculature:The heart is nonenlarged.Atherosclerotic calcifications of the thoracic aorta. Thoracic aorta and pulmonary arteries have normal contours; noncontrast technique limits evaluation. Coronary Artery Calcifications: Present Lungs and Airways: Mild dependent atelectasis. Pleura:No pleural effusion Upper Abdomen:Unremarkable Bones:Degenerative changes of the thoracic spine. CT/Low Dose CT Lung Screening IMPRESSION: Stable examination. Coronary artery calcification (CAC) is is present Lung-RADS Category: 2 BENIGN (BASED ON IMAGING FEATURES OR INDOLENT BEHAVIOR). RECOMMEND 12-MONTH SCREENING LDCT. Other Significant Findings: Reading Location: [place] [address]
--- OUTSIDE RECORDS SUMMARY | 2024-11-09 06:17 | XMS RPT_ITS | CCD ---
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 Thelma Ahumada Primary Care Provider Dr. Thelma Ahumada Attending Provider Dr. Thelma Ahumada Referring Provider MD Adilson Wilson Attending Provider Dr. Donald Smith Attending Provider [phone] Thelma Ahumada MD Primary Care Provider Dr. Mauro Ryder DO Emergency Provider Brandyn RICE, Dr. Renee Attending Provider Alison MEDICAL SOCIAL CONSULTANT, Liliana Attending Unavailable Thelma Ahumada Primary Care Unavailable Thelma Ahumada Referring Unavailable Twan Gonzalez Attending Unavailable Thelma Ahumada Primary Care Unavailable Thelma Ahumada Primary Care Unavailable Thelma Ahumada Attending Unavailable Thelma Ahumada Primary Care Unavailable Thelma Ahumada Attending Unavailable Thelma Ahumada Primary Care Unavailable Mauro Ryder [facility] Ahum[facility] Primary Care Unavailable Alison MEDICAL SOCIAL CONSULTANT, Liliana Attending Unavailable Liliana Rosas NP Referring Unavailable Thelma Ahumada Primary Care Unavailable Thelma Ahumada Attending Unavailable Thelma Ahumada Referring Unavailable Allergies Allergy Classification Reported Allergen(s) Allergy Type Date of Onset Reaction(s) Facility (4 sources) Codeine Drug Allergy 06-20-2022 Other [facility] (1 source) Codeine Drug Allergy 10-21-2024 [facility] Repository Medications Current Medications Medication Drug Class(es) Dates Sig (Normalized) Sig (Original) [id number] 200 actuat albuterol 0.09 mg/actuat metered dose inhaler (11 sources) beta2-Adrenergic Agonist Start: 10-21-2024 Albuterol Sulfate (Ventolin Hfa) 90 mcg/actuation HFA aerosol inhaler Active 2 NMA INHALATION Q4H as needed for shortness of breath or wheezing 18 October 21, 2024 2:27pm Start: 01-30-2021 End: 10-18-2024 Albuterol Sulfate (Ventolin Hfa) 90 mcg/actuation HFA aerosol inhaler Discontinued 2 NMA INHALATION Q4H as needed for shortness of breath or wheezing December 12, 2023 8:03am October 18, 2024 10:22pm Start: 01-30-2021 End: 12-13-2021 take 1 puff(s) by inhalation every four hours Albuterol Sulfate (Ventolin Hfa) 90 mcg/actuation HFA aerosol inhaler Active 2 PUFF INHALATION Q4H December 13, 2021 8:49am calcium carbonate 1500 mg / cholecalciferol 500 unt oral capsule (4 sources) Vitamin D Start: 12-21-2020 Calcium Carbon ate-Vitamin D3 (Calcium 600 With Vitamin D3) 600 mg(1,500mg) -500 unit capsule Active 600 NMA PO TWICE A DAY December 21, 2020 12:00am Start: 12-21-2020 take 1 capsule by mo [facility] twice daily Calcium Carbonate-Vitamin D3 (Calcium 600 With Vitamin D3) 600 mg(1,500mg) -500 unit capsule Active 600 CAP PO TWICE A DAY December 20, 2020 11:00pm Fluticasone Propion-Salmeterol (7 sources) Corticosteroid, beta2-Adrenergic Agonist Start: 10-21-2024 Fluticasone Propion-Salmeterol 500-50 mcg/dose blister with device Active 1 NMA INHALATION TWICE A DAY 180 October 21, 2024 2:27pm Start: 06-03-2023 End: 10-18-2024 Fluticasone Propion-Salmeter ol 500-50 mcg/dose blister with device Discontinued 1 NMA INHALATION TWICE A DAY 180 June 03, 2023 1:00am October 18, 2024 10:22pm Start: 06-03-2023 Fluticasone Pr opion-Salmeterol Active 1 INH INHALATION TWICE A DAY 180 June 03, 2023 12:00am Start: 12-13-2022 End: 06-03-2023 Fluticasone Propion-Salmeter ol (Wixela Inhub) 500-50 mcg/dose blister with device Discontinued 1 NMA INHALATION TWICE A DAY 60 December 13, 2022 12:00am June 03, 2023 9:38am Start: 12-13-2022 End: 06-03-2023 Fluticasone Propion-Salmeter ol (Wixela Inhub) 500-50 mcg/dose blister with device Discontinued 1 INH INHALATION TWICE A DAY 60 December 12, 2022 11:00pm June 03, 2023 8:38am ondansetron 4 mg disintegrating oral tablet (1 source) Serotonin-3 Receptor Antagonist Start: 10-21-2024 take 1 tablet by mouth every eight hours as needed for nausea and vomiting Ondansetron 4 mg tablet,disintegrating Active 4 mg PO Q8H as needed for nausea and vomiting 10 October 21, 2024 12:00am 72 hr scopolamine 0.0139 mg/hr transdermal system (1 source) Anticholinergic Start: 10-21-2024 Scopolamine Base 1 mg over 3 days patch 3 day Active 1 NMA TD Every 3 Days as needed for dizziness or vertigo October 21, 2024 12:00am Completed/Discontinued Medications Medication Drug Class(es) Dates Sig (Normalized) Sig (Original) amLODIPine 5 mg oral tablet (20 sources) Dihydropyridine Calcium Channel Cruz Start: 06-27-2020 End: 12-09-2023 take 1 tablet by mouth twice daily Amlodipine 5 mg tablet Discontinued 5 mg PO TWICE A DAY 180 December 10, 2022 12:27pm December 09, 2023 8:14am Start: 06-05-2020 End: 06-27-2020 take 1 tablet by mouth once daily Amlodipine 5 mg tablet Discontinued 5 mg PO DAILY June 09, 2020 5:54pm June 27, 2020 9:05am betamethasone 0.5 mg/ml / clotrimazole 10 mg/ml topical cream (3 sources) Azole Antifungal, Corticosteroid Start: 12-10-2022 End: 06-18-2023 Clotrimazole-Betamethasone 1-0.05 % cream Discontinued 1 NMA TOPICAL TWICE A DAY 15 10 December 10, 2022 12:00am June 18, 2023 3:31pm Start: 12-10-2022 End: 06-18-2023 Clotrimazole-Betamethasone D iscontinued 1 APPLIC TOPICAL TWICE A DAY 15 10 December 09, 2022 11:00pm June 18, 2023 2:31pm Budesonide-Formoterol (11 sources) Corticosteroid, beta2-Adrenergic Agonist Start: 12-10-2022 End: 12-13-2022 Budesonide-Formoterol (Symbicort) 160-4.5 mcg/actuation HFA aerosol inhaler Discontinued 2 NMA INHALATION TWICE A DAY as needed December 10, 2022 10:03am December 13, 2022 9:37am Start: 12-10-2022 End: 12-13-2022 take 1 puff(s) by inhalation twice daily Budesonide-Formoterol (Symbicort) 160-4.5 mcg/actuation HFA aerosol inhaler Discontinued 2 PUFF INHALATION TWICE A DAY December 10, 2022 9:03am December 13, 2022 8:37am Start: 12-13-2021 End: 12-10-2022 Budesonide-Formoterol (Symbi bo) 160-4.5 mcg/actuation HFA aerosol inhaler Discontinued 2 NMA INHALATION TWICE A DAY 10.2 December 13, 2021 9:49am December 10, 2022 10:04am Start: 12-13-2021 End: 12-10-2022 take 1 puff(s) [...] 13, 2021 9:49am Start: 05-16-2021 End: 12-13-2021 Budesonide-Formoterol (Symbi bo) 160-4.5 mcg/actuation HFA aerosol inhaler Discontinued 2 NMA INHALATION TWICE A DAY 10.2 May 16, 2021 1:00am December 13, 2021 9:49am Start: 05-16-2021 End: [...] 16, 2021 1:00am December 13, 2021 9:49am fluticasone propionate 0.05 mg/actuat metered dose nasal spray (15 sources) Corticosteroid Start: 06-21-2021 End: 10-18-2024 Fluticasone Propionate 50 mcg/actuation spray,suspension Discontinued 1 NMA INTRANASAL DAILY June 20, 2022 2:06pm December 10, 2022 10:04am Administer into each nostril daily at bedtime for one month. Start: 06-21-2021 End: 12-10-2022 take 1 spray(s) nasal route once daily at bedtime Fluticasone Propionate Active 1 SPRAY INTRANASAL DAILY December 10, 2022 9:04am Administer into each nostril daily at bedtime for one month. meclizine hydrochloride 25 mg oral tablet (2 sources) Antiemetic Start: 10-19-2024 End: 10-21-2024 take 1 tablet by mouth three times daily as needed for dizziness Meclizine 25 mg tablet Discontinued 25 mg PO THREE TIMES A DAY as needed for dizziness 9 October 19, 2024 1:30am October 21, 2024 2:23pm methylPREDNISolone 4 mg oral tablet (3 sources) Corticosteroid Start: 06-03-2023 End: 06-18-2023 take 1 tablet by mouth once Methylprednisolone (Medrol (Jack)) 4 mg tablets,dose pack Discontinued 0 PO per package directions June 03, 2023 1:00am June 18, 2023 3:32pm PO PER PKG DIR Problems Problem Classification Problem Date Documented Da te Episodic/Chronic Chronic obstructive pulmonary disease and bronchiectasis (6 sources) Asthma-chronic obstructive pulmonary disease overlap syndrome; Translations: [Chronic obstructive pulmonary disease, unspecified] Onset: 01-02-2024 01-30-2021 Chronic Conditions associated with dizziness or vertigo (8 sources) Lightheadedness; Translations: [Dizziness and giddiness] Onset: 10-22-2024 05-16-2021 Episodic Essential hypertension (6 sources) Hypertensive disorder; Translations: [Essential (primary) hypertension] Onset: 12-09-2023 06-09-2020 Chronic Nutritional deficiencies (1 source) Vitamin D deficiency, unspecified; Translations: [Vitamin D deficiency, unspecified] Onset: 12-09-2023 Chronic Other connective tissue disease (3 sources) Adhesive capsulitis of right shoulder; Translations: [Adhesive capsulitis of right shoulder] 06-18-2023 Episodic Other connective tissue disease (1 source) Adhesive capsulitis of right shoulder; Translations: [Adhesive capsulitis of shoulder] 06-18-2023 Episodic Other lower respiratory disease (4 sources) Nodule of lung; Translations: [Solitary pulmonary nodule] 09-23-2020 Episodic Other lower respiratory disease (2 sources) Solitary pulmonary nodule; Translations: [Solitary pulmonary nodule] Onset: 10-21-2024 Episodic Other nervous system disorders (4 sources) Tremor; Translations: [Tremor, unspecified] 05-16-2021 Episodic Other non-traumatic joint disorders (3 sources) Disorder of shoulder; Translations: [Other specified joint disorders, unspecified shoulder] 06-10-2023 Episodic Other non-traumatic joint disorders (5 sources) Pain in right shoulder; Translations: [Right shoulder pain] 06-03-2023 Episodic Other upper respiratory disease (4 sources) Seasonal allergy; Translations: [Other seasonal allergic rhinitis] 06-09-2020 Chronic Otitis media and related conditions (4 sources) Dysfunction of eustachian tube; Translations: [Unspecified Eustachian tube disorder, unspecified ear] 06-21-2021 Episodic Substance-related disorders (7 sources) Nicotine dependence; Translations: [Nicotine dependence, cigarettes, uncomplicated] Onset: 01-02-2024 12-27-2020 Chronic Results Test Name Value Interpretation Reference Range Facility Carotid Duplex Ultrasoundon 11-03-2024 Carotid Duplex Ultrasound [facility] [place] [address] Carotid Duplex Ultrasound 11/03/24 0754 MR#: [id number] Acct: [id number] Name: RUSSELL DSOUZA Rep #: [id number] : 1960 64 From: Twan Gonzalez MD Attending Dr: Dr. Thelma Ahumada MD Status: RE G CLI Ordering Dr: Thelma Ahumada MD Date: 11/03/24 Location: [facility] Sex: F C Admitted: Reason For Study Reason For Study: VERTIGO Rt. Velocities/BP Lt. Velocities/BP Prox CCA 122.2/23.6 cm/sec. Prox CCA 102.9/21.5 cm/sec. Mid CCA 116.7/27.2 cm/sec. Mid CCA 116.2/17.5 cm/sec. Dist CCA 84.5/18.6 cm/sec. Dist CCA 108.9/23.0 cm/sec. Prox ICA 64.6/15.5 cm/sec. Prox ICA 82.0/17.1 cm/sec. Mid ICA 76.9/19.2 cm/sec. Mid ICA 95.2/22.6 cm/sec. Dist ICA 68.3/21.6 cm/sec. Dist ICA 74.3/18.2 cm/sec. Rt. ICA/CCA = 76.9/116.7=0.7. Lt. ICA/CCA = 116.2/95.2=1.2. Prox ECA 95.3/10.6 cm/sec. Prox ECA 63.3/9.5 cm/sec. Rt. Vert. 29.6/11.1 cm/sec. Lt. Vert. 51.6/12.8 cm/sec. Right Extracranial There is intimal thickening but no significant atherosclerotic plaque noted in the right common carotid artery. There is intimal thickening but no significant atherosclerotic plaque noted in the right internal carotid artery. There is intimal thickening but no significant atherosclerotic plaque noted in the right external carotid artery. Antegrade flow is noted in the right vertebral artery. Left Extracranial There is intimal thickening but no significant atherosclerotic plaque noted in the left common carotid artery. There is no significant atherosclerotic plaque noted in the left internal carotid artery. The left internal carotid artery is very tortuous. There is no significant atherosclerotic plaque noted in the left external carotid artery. Antegrade flow is noted in the left vertebral artery. Procedure Carotid Duplex 17102. This is a Carotid Duplex examination using B-mode, color flow and specral Doppler. The study was technically difficult. Exam performed in department. VL/Carotid Duplex Ultrasound Interpretation Summary Normal right extracranial internal carotid. Normal left extracranial internal carotid. Patent and antegrade vertebrals bilaterally. Ordering Physician: Thelma Ahumada Referring Physician: Thelma Ahumada Performed By: Teri Allen, OMAR, RVT 11/03/248 Date Twan Gonzalez MD CC: Dr. Thelma Ahumada MD Date Dictated: 11/03/24 0754 Date Transcribed: 11/03/241627 Professor Of Surgery: Signed [facility] MR/BMS.IMBon 10-21-2024 MR/BMS.IMB [facility] [address] [place] [address] OFFICE VISIT Date of Service: 10/21/24 MR#: [id number] Acct: [id number] Name: RUSSELL DSOUZA Rep #: [id number] : 1960 Provider: Dr. Thelma lovell MD Age/Sex: 64/F Location: [facility].IMB Status: Signed Intake Vital Signs 10/18/24 22:16 10/21/24 09:51 10/21/24 13:32 Height 5 ft 5 in 5 ft 5 in 5 ft 5 in Weight: 211 lb 8 oz BMI 35.2 BP 122/82 H Blood Pressure Location Rt brachial Position Sitting Respiration 16 Pulse 65 Pulse Source Monitor Temp 98.6 F Temp Source Temporal Pulse Oximetry (%) 95 Oxygen Delivery Method room air Intake Visit Reasons: Vertigo Chief Complaint: Vertigo General Teller Required: No Accompanied by: Friend Is patient in pain?: No Allergies codeine Adverse Reaction (Verified 10/21/24 13:23) Other Medications ???Medication ???Instructions ???Recorded ???Confirmed ???Type calcium 600 mg (as 600 cap PO BID 12/21/20 10/21/24 H istory carbonate)-vitamin D3 12.5 mcg (500 unit) capsule (Calcium with Vit D3) amlodipine 5 mg tablet 5 mg PO BID #180 tabs 12/09/23 Rx albuterol sulfate 90 mcg/actuation 2 puff inhalation Q4H PRN 10/21/24 Rx aerosol inhaler (Ventolin HFA) shortness of breath or wheezing #18 grams fluticasone 500 mcg-salmeterol 50 1 inh inhalation BID #180 ea 09/2810/21/24 Rx mcg/dose blistr powdr for inhalation ondansetron 4 mg disintegrating 4 mg PO Q8H PRN nausea and 10/21/24 Rx tablet vomiting #10 tabs scopolamine base 1 mg over 3 days 1 patch transdermal Q3D PRN 10/2110/21/24 Rx transdermal patch dizziness or vertigo #4 ea Have you fallen in the past year?: [...] walking frequency: daily HPI HPI Chief Complaint: Vertigo Details: RUSSELL DSOUZA, is a 64 F who presents to the office today for an acute care ER visit follow-up. 64-year-old female who went to the emergency room on 18 October. The ER note was reviewed. After spending considerable time discussing with the patient, to me she clearly had vertiginous symptoms. She described a sense of spinning to me. She initially was sitting in her easy chair, recliner with the head reclined back. She was playing video game, and when she thought she would get up to go to bed she stood up and abruptly had a sense of vertiginous/spinning , accompanied with imbalance. She could barely get down the bradley thinking that she will go to bed and this would pass. Remotely perhaps 6 or 8 years earlier, when for starting on blood pressure medication she had an episode of lightheadedness but does not recall specifically the vertiginous symptoms at that time. However was felt to be vertigo. In any event she has been fine since then until this episode. She laid down in bed but then later got up to smoke a cigarette but was vertiginous as soon as she opened up her eyes and tried to get up. Ultimately could not get her son's attention who is in the house. She was able to lay back which relieved the vertigo symptoms, and made a phone call to a neighbor who came over to the house. Ultimately gerda was then called and taken to the emergency room. In the emergency room, she had fairly extensive workup including head CT, lab studies. EKG was okay, CT brain was unremarkable. They had treated her acutely in the emergency room for vertigo, and then ultimately placed a scopolamine patch. By the time that kicked in she was feeling better, able to ambulate down the bradley she states. They did suggest that she be admitted however she declined. Yesterday, had a pretty good day she states overall. Today, had noticed a brief episode of vertiginous symptom, and some sense of fogginess. She does not have any head pressure, headache, double vision, blurry vision, hearing change, tinnitus, focal areas of numbness or tingling. No chest pain or chest tightness. She is a long-term smoker, less than 10 cigarettes/day typically. Has a history of asthma/COPD overlap syndrome. Uses only as needed inhalers. She is on (more content not included)... Normal [facility] L499.0042on 10-19-2024 Trop T High Sen 7 ng/L Normal <=14 [facility] Comment on above: Performed By: #### L 499.0042 #### [facility] [address] [place], [place], [id number] Troponin T.cardiac [Mass/vol ume] in Serum or Plasma by High sensitivity methodOrdered By: Mauro Ryder on 10-19-2024 Troponin T.cardiac High sensitivity method [Mass/Vol] 7 ng/L <14 [facility] 12 Lead EKGon 10-18-2024 12 Lead EKG [facility] [address] [place] [address] 12 Lead EKG 10/18/24 2304 MR#: [id number] Acct: [id number] Name: RUSSELL DSOUZA Rep #: [id number] : 1960 64 From: Donald Smith MD Attending Dr: Status: DEP ER Ordering Dr: Mauro Ryder DO Date: 5 Location: ED Sex: F C Admitted: Test Reason : DIZZY Blood Pressure : */* mmHG Vent. Rate : 59 BPM Atrial Rate : 59 BPM P-R Int : 126 ms QRS Dur : 88 ms QT Int : 424 ms P-R-T Axes : 48 79 51 degrees QTcB Int : 419 ms Sinus bradycardia Otherwise normal ECG Confirmed by DONALD SMITH MD ([id number]), scientific editor VICENTA LEACH ([id number]) on 10/20/2024 6:47:20 AM Referred By: Confirmed By: DONALD SMITH MD 10/20/24 0647 Date Donald Smith MD CC: Dr. Mauro Ryder, DO; Dr. Thelma Ahumada MD Signed Normal [facility] Absolute lymphocyte countOrd ered By: Mauro Ryder on 10-18-2024 Lymphocytes Auto (Unsp spec) [#/Vol] 2.06 10*3/uL 0.83-4.51 [facility] Absolute neutrophil countOrd ered By: Maurotheodora Ryder on 10-18-2024 Neutrophils (Bld) [#/Vol] 8.9 10*3/uL High 2.0-7.7 [facility] Anion gap in Serum or Plasma Ordered By: Maurotheodora Ryder on 10-18-2024 Anion gap [Moles/Vol] 12 mmol/L 5-15 [facility] Automated lymphocyte count a s percentage of total leukocytesOrdered By: Mauro Ryder on 10-18-2024 Lymphocytes/100 WBC Auto (Unsp spec) 17.1 % Low 19-41 [facility] BUN/creatinine ratioOrdered By: Mauro Ryder on 10-18-2024 Urea nitrogen/Creatinine [Mass ratio] 21.4 mg/mg High 10-20 [facility] Basic Metabolic Profile (BMP )on 10-18-2024 BUN/CRE 21.4 RATIO High 10-20 [facility] Comment on above: Performed By: #### L 500.2500, L100.0100, L501.4021 ####[facility] [address] [place], [address] Calcium [Mass/Vol] 9.0 mg/dL Normal 7.6-11.0 [facility] Comment on above: Performed By: #### L 500.2500, L100.0100, L501.4021 ####[facility] [address] [place], [address] Chloride [Moles/Vol] 104 mmol/L Normal 98-108 [facility] Comment on above: Performed By: #### L 500.2500, L100.0100, L501.4021 ####[facility] [address] [place], [address] CO2 [Moles/Vol] 24.6 mmol/L Normal 21.0-32.0 [facility] Comment on above: Performed By: #### L 500.2500, L100.0100, L501.4021 ####[facility] [address] [place], [address] Creatinine [Mass/Vol] 0.87 mg/dL Normal 0.70-1.20 [facility] Comment on above: Performed By: #### L 500.2500, L100.0100, L501.4021 ####[facility] [address] [place], [address] ECRCL 72.62 ml/min Normal 50-250 [facility] Comment on above: Performed By: #### L 500.2500, L100.0100, L501.4021 ####[facility] [address] [place], [address] GAP 12 Normal 5-15 [facility] Comment on above: Performed By: #### L 500.2500, L100.0100, L501.4021 ####[facility] [address] [place], [address] GFR/1.73 sq M.predicted among non-blacks MDRD (S/P/Bld) [Vol rate/Area] 74 mL/min/{1.73_m2} Normal >60 [facility] Comment on above: Result Comment: mL/m in/1.73m2 CKD-EPI Creatinine Equation (2020) Performed By: #### L 500.2500, L100.0100, L501.4021 ####[facility] [address] [place], [address] Glucose [Mass/Vol] 106 mg/dL High 70-99 [facility] Comment on above: Performed By: #### L 500.2500, L100.0100, L501.4021 ####[facility] [address] [place], [address] Potassium [Moles/Vol] 3.6 mmol/L Normal 3.3-5.1 [facility] Comment on above: Performed By: #### L 500.2500, L100.0100, L501.4021 ####[facility] [address] [place], [address] Sodium [Moles/Vol] 140 mmol/L Normal 133-145 [facility] Comment on above: Performed By: #### L 500.2500, L100.0100, L501.4021 ####[facility] [address] [place], [address] Urea nitrogen [Mass/Vol] 19 mg/dL Normal 4-19 [facility] Comment on above: Performed By: #### L 500.2500, L100.0100, L501.4021 ####[facility] [address] [place], [address] Basophil percentageOrdered B y: Mauro Ryder on 10-18-2024 Basophils/100 WBC (Bld) 0.6 % 0-1 [facility] Bilirubin Test strip Ql (U)O rdered By: Mauro Ryder on 10-18-2024 Bilirubin Ql (U) Negative Negative [facility] Brain/Head without Contrasto n 10-18-2024 Brain/Head without Contrast [facility] Imaging Services [address] [place] [address] Brain/Head without Contrast MR#: [id number] Acct: [id number] Name: RUSSELL DSOUZA Rep #: [id number] : 1960 F 64 From: Allyssa nugent MD PCP: Dr. Thelma Ahumada MD Status: PRE ER Study: Brain/Head without Contrast Date of Exam: 09/28 06/23 Exam# [id number] Ordering Dr: Mauro Ryder DO PROCEDURE: BRAIN/HEAD WITHOUT CONTRAST 10/18/2024 REASON FOR EXAM: DIZZINESS TECHNIQUE: BRAIN/HEAD WITHOUT CONTRAST Coronal and Sagittal reconstruction series were provided. One or more dose reduction techniques were used (e.g., Automated exposure control, adjustment of the mA and/or kV according to patient size, use of iterative reconstruction technique. RADIATION DOSE SUMMARY: CTDlvol: 44.99 mGy DLP: 829.85 mGycm COMPARISON: 06/05/2020. FINDINGS: CT SCAN OF THE BRAIN WITHOUT IV CONTRAST CLINICAL INDICATION: TECHNIQUE: Axial and reformatted sagittal and coronal images of the brain obtained without IV contrast administration. Normal size of the ventricles and extra-axial spaces for the patient's age. Normal white matter tracts of the supratentorial brain. Normal basal ganglia and thalami. Normal brainstem. Normal cerebellum. There is no demonstrated extra-axial, intraparenchymal, or intraventricular hemorrhage. There are no findings of an acute ischemic infarction. Normal calvarium. There is no demonstrated fracture. Normal soft tissue structures. Normal visualized paranasal sinuses. CT/Brain/Head without Contrast IMPRESSION: Normal unenhanced CT scan of the brain. Reading Location: [place] [address] CC: Dr. Mauro Ryder DO; Dr. Thelma Ahumada MD Professor Of Surgery: Signed Normal [facility] CBC W/Diff, Automatedon 09-28 Absolute Lymph 2.06 X10 3/uL Normal 0.83-4.51 [facility] Comment on above: Performed By: #### L 500.2500, L100.0100, L501.4021 ####[facility] [address] [place], [place], [address] Absolute Neut 8.9 X10 3/uL High 2.0-7.7 [facility] Comment on above: Performed By: #### L 500.2500, L100.0100, L501.4021 ####[facility] [address] [place], [address] Basophils/100 WBC (Bld) 0.6 % Normal 0-1 [facility] Comment on above: Performed By: #### L 500.2500, L100.0100, L501.4021 ####[facility] [address] [place], [address] Eosinophils/100 WBC (Bld) 0.7 % Normal 0-5 [facility] Comment on above: Performed By: #### L 500.2500, L100.0100, L501.4021 ####[facility] [address] [place], [address] Erythrocyte distribution width (RBC) [Ratio] 12.4 % Normal 11.6-14.6 [facility] Comment on above: Performed By: #### L 500.2500, L100.0100, L501.4021 ####[facility] [address] [place], [address] Hematocrit (Bld) [Volume fraction] 39.9 % Normal 37-47 [facility] Comment on above: Performed By: #### L 500.2500, L100.0100, L501.4021 ####[facility] [address] [place], [address] Hemoglobin (Bld) [Mass/Vol] 13.6 g/dL Normal 12.0-15.0 [facility] Comment on above: Performed By: #### L 500.2500, L100.0100, L501.4021 ####[facility] [address] [place], [address] IG% 0.400 Normal 0.0-0.9 [facility] Comment on above: Result Comment: IG% - Immature Granulocytes (promyelocytes, myelocytes and metamyelocytes) > 1% indicates that a LEFT SHIFT is Present. Performed By: #### L 500.2500, L100.0100, L501.4021 ####[facility] [address] [place], [address] Lymphocytes/100 WBC (Bld) 17.1 % Low 19-41 [facility] Comment on above: Performed By: #### L 500.2500, L100.0100, L501.4021 ####[facility] [address] [place], [address] MCH (RBC) [Entitic mass] 30.5 pg Normal 27.0-32.0 [facility] Comment on above: Performed By: #### L 500.2500, L100.0100, L501.4021 ####[facility] [address] [place], [address] MCHC (RBC) [Mass/Vol] 34.1 g/dL Normal 32-36 [facility] Comment on above: Performed By: #### L 500.2500, L100.0100, L501.4021 ####[facility] [address] [place], [address] MCV (RBC) [Entitic vol] 89.5 fL Normal 81-99 [facility] Comment on above: Performed By: #### L 500.2500, L100.0100, L501.4021 ####[facility] [address] [place], [address] Monocytes/100 WBC (Bld) 7.6 % Normal 0-10 [facility] Comment on above: Performed By: #### L 500.2500, L100.0100, L501.4021 ####[facility] [address] [place], [address] Neutrophils/100 WBC (Bld) 73.6 % High 47-70 [facility] Comment on above: Performed By: #### L 500.2500, L100.0100, L501.4021 ####[facility] [address] [place], [address] Nucleated RBC (Bld) [#/Vol] 0 10*3/uL Normal 0-5 [facility] Comment on above: Performed By: #### L 500.2500, L100.0100, L501.4021 ####[facility] [address] [place], [address] Platelet mean volume (Bld) [Entitic vol] 9.2 fL Normal 6.2-12.0 [facility] Comment on above: Performed By: #### L 500.2500, L100.0100, L501.4021 ####[facility] [address] [place], [address] Platelets (Bld) [#/Vol] 247 10*3/uL Normal 150-450 [facility] Comment on above: Performed By: #### L 500.2500, L100.0100, L501.4021 ####[facility] [address] [place], [address] RBC (Bld) [#/Vol] 4.46 10*6/uL Normal 4.2-5.4 [facility] Comment on above: Performed By: #### L 500.2500, L100.0100, L501.4021 ####[facility] [address] [place], [address] RDW SD 40.5 fl Normal 35.1-43.9 [facility] Comment on above: Performed By: #### L 500.2500, L100.0100, L501.4021 ####[facility] [address] [place], [address] WBC (Bld) [#/Vol] 12.0 10*3/uL High 4.4-11.0 [facility] Comment on above: Performed By: #### L 500.2500, L100.0100, L501.4021 ####[facility] [address] [place], [place], [address] Carbon dioxide, total [Moles /volume] in Central venous bloodOrdered By: Mauro Ryder on 10-18-2024 CO2 [Moles/Vol] 24.6 mmol/L 21.0-32.0 [facility] Chest PA and Lateralon 10-18 Chest PA and Lateral [facility] Imaging Services [address] [place] [address] Chest PA and Lateral MR#: [id number] Acct: [id number] Name: RUSSELL DSOUZA Rep #: [id number] : 1960 F 64 From: Lidia Tamayo PCP: Dr. Thelma Ahumada MD Status: PRE ER Study: Chest PA and Lateral Date of Exam: 10/18/24 Exam# [id number] Ordering Dr: Mauro Ryder DO PROCEDURE: CHEST PA AND LATERAL 10/18/2024 REASON FOR EXAM: DIZZINESS TECHNIQUE: CHEST PA AND LATERAL COMPARISON: Prior chest CT from 11/04/2023 and 10/29/2022 FINDINGS: 2.2 x 2.2 cm opacity within the right midlung likely a pulmonary nodule as seen on multiple prior CTs. No focal consolidations. No pleural effusion or pneumothorax. Cardiac silhouette is unchanged. No acute fractures. RAD/Chest PA and Lateral IMPRESSION: Again seen is a 2.2 cm circular right midlung nodule. No focal consolidations. No pleural effusion or pneumothorax. Reading Location: [facility] CC: Dr. Mauro Ryder DO; Dr. Thelma Ahumada MD Professor Of Surgery: Signed Normal [facility] Chloride assayOrdered By: Jeromy Ryder on 10-18-2024 Chloride [Moles/Vol] 104 mmol/L 98-108 [facility] D-Dimer Quantitative (DVT/PE )on 10-18-2024 D-DIMER QUANT 0.31 FEU/ug/m Normal 0.27-0.49 [facility] Comment on above: Order Comment: ESE Carrasco. PREVIOUS SPECIMEN REJECTED DUE TO QNS. 10/18/24 2306 Shabnam Contreras. Result Comment: NORM AL D-Dimer level (<0.50) indicates no DVT or PE. Performed By: #### L 300.8000 #### [facility] [address] [place], [address] Emergency Department Summary on 10-18-2024 Emergency Department Summary [facility] Medical Records Department [address] [place] [address] Emergency Department Summary 10/18/24 MR#: [id number] Acct: [id number] Name: RUSSELL DSOUZA Rep #: [id number] : 1960 64 From: Mauro Ryder DO PCP: Dr. Thelma Ahumada MD Status:REG ER Location: ED HPI History of Present Illness Chief Complaint: Dizziness Narrative Narrative: Chief complaint and HPI: Dizziness with presyncope. 64-year-old female with past medical history of HTN and tobacco abuse presents for evaluation of dizziness with presyncope. Patient states this evening after getting up from a seated position she became dizzy/lightheaded. She states she was able to make it to her bedroom where she rested in bed. She states she then got up to smoke a cigarette and when walking she became dizzy/lightheaded with tunnel vision. Associated symptom was nausea and one episode of nonbilious/nonbloody emesis. She denies room spinning. She denies any fever, chills, URI symptoms, headache, vision changes, hearing changes, shortness of breath, chest pain abdominal pain, dysuria, diarrhea, constipation. Patient endorses good p.o. intake. She denies any neurological deficit, weakness, numbness/tingling. On chart review, patient has a history of dizziness in the past at that time she was diagnosed with HTN and vertigo. Review of systems: See HPI Medications: As listed on the chart Allergies: As listed on the chart PFSH: Per chart Vital signs: As listed on the chart. Reviewed. Physical exam: Gen: A O x3, NAD Head: Normocephalic, atraumatic Eyes: No sclera icterus, conjunctiva clear, PERRL, EOMI no nystagmus, ENT: Moist mucous membranes, No facial asymmetry Neck: Trachea midline, No JVD CV: RRR, no murmurs, no peripheral edema Resp: Lungs CTA BL, no w/r/c GI: Abd soft, non-distended, non-tender, no r/r/g Musc: Full ROM, no deformity, strength +5/5 in all extremities, no pronator drift, no ataxia Skin: Warm, dry, intact Neuro: Alert, oriented, grossly intact, sensation intact, no focal deficits Psych: Cooperative, appropriate mood and affect PFSH PFS Medical History (Reviewed 12/12/23 @ 07:50 by Liliana Rosas MEDICAL SOCIAL CONSULTANT, MEDICAL SOCIAL CONSULTANT-C) Adhesive capsulitis of right shoulder Lung nodule Seasonal allergies Hypertension Home Medications ???Medication ???Instructions ???Recorded ???Last Taken ???Type calcium 600 mg (as 600 cap PO BID 12/21/20 Unknown Hi story carbonate)-vitamin D3 12.5 mcg (500 unit) capsule (Calcium with Vit D3) amlodipine 5 mg tablet 5 mg PO BID #180 tabs 12/09/23 Unk nown Rx meclizine 25 mg tablet 25 mg PO TID PRN dizziness 3 days 10/19/24 Unknown Rx #9 tabs Allergy/AdvReac Type Severity Reaction Status Date / Time codeine AdvReac Other Verified 12/12/23 07:41 Family History (Reviewed 12/12/23 @ 07:50 by Liliana Rosas MEDICAL SOCIAL CONSULTANT, MEDICAL SOCIAL CONSULTANT-C) Mother Breast cancer CVA (cerebral vascular accident) Hypertension Osteoporosis Alcoholism Other Depression with anxiety Surgical History History of appendectomy Social History (Reviewed 12/12/23 @ 07:50 by Liliana Rosas MEDICAL SOCIAL CONSULTANT, MEDICAL SOCIAL CONSULTANT-C) Smoking Status: Current every day smoker tobacco type: cigarettes Tobacco: How many years used: 40 alcohol intake: never substance use type: does not use what type of physical activity do you participate in: walking frequency: daily EXAM Physical Exam Const Vital Signs: 10/18/24 22:16 10/18/24 22:55 10/19/24 00:20 Temperature 98.4 F Temperature Source Oral Pulse Rate 64 64 Pulse Rate [Lying] 66 Respiratory Rate 18 20 H Blood Pressure 156/72 H 121/49 H Blood Pressure [Lying] 156/76 H Blood Pressure Mean 100 73 Blood Pressure Mean [Lying] 102 Pulse Ox 96 95 Oxygen Delivery Method Room Air Room Air MDM MDM MDM Narrative Medical decision making narrative: 64-year-old female with past medical history of HTN and tobacco abuse presents for evaluation of dizziness with presyncope. Dizziness appears worsened with change in position. Associated symptom was nausea with one episode of emesis. On chart review, she had a history of this in the past in which she was diagnosed with HTN and vertigo. On presentation, patient is no acute distress. Physical exam is unremarkable. She is mildly hypertensive otherwise vitals are stable. Differential diagnosis includes but is not limited to orthostatic hypotension, vasovagal response, vertigo, dehydration, electrolyte abnormality, TAPAN, UTI, suspect less likely intracranial abnormality or ACS. NS bolus, Zofran, meclizine ordered for symptoms. Laboratory workup ordered including chest x-ray and CT head. Orthostatic vital signs were attempted however patient endorsed dizziness with a seated position and therefore (more content not included)... Normal [facility] Eosinophil percentageOrdered By: Mauro Ryder on 10-18-2024 Eosinophils/100 WBC (Bld) 0.7 % 0-5 [facility] Erythrocyte distribution wid th ratioOrdered By: [facility] Center[facility]a on 10-18-2024 Erythrocyte distribution width (RBC) [Ratio] 12.4 % 11.6-14.6 [facility] Erythrocyte distribution wid th standard deviationOrdered By: Mauro Mahajan on 10-18-2024 Erythrocyte distribution width (RBC) [Ratio] 40.5 fl 35.1-43.9 [facility] Glomerular filtration rate ( GFR) estimation/1.73 sq m using serum, plasma, or whole bOrdered By: Mauro Ryder on 10-18-2024 GFR/1.73 sq M.predicted among non-blacks MDRD (S/P/Bld) [Vol rate/Area] 74 mL/min/{1.73_m2} >60 [facility] Comment on above: mL/min/1.73m2 CKD-EP I Creatinine Equation (2020) Hematocrit Auto (Bld) [Volum e fraction]Ordered By: Mauro Ryder on 10-18-2024 Hematocrit (Bld) [Volume fraction] 39.9 % 37-47 [facility] Hemoglobin measurementOrdere d By: Mauro Ryder on 10-18-2024 Hemoglobin (Bld) [Mass/Vol] 13.6 g/dL 12.0-15.0 [facility] Immature granulocytes/100 WB C Auto (Bld)Ordered By: Maurotheodora Ryder on 10-18-2024 Immature granulocytes/100 WBC (Bld) 0.400 % 0.0-0.9 [facility] Comment on above: IG% - Immature Granu locytes (promyelocytes, myelocytes and metamyelocytes) > 1% indicates that a LEFT SHIFT is Present. Ketones Test strip Ql (U)Ord ered By: Mauro Ryder on 10-18-2024 Ketones Ql (U) Negative Negative [facility] L501.4021on 10-18-2024 Trop T High Sen 6 ng/L Normal <=14 [facility] Comment on above: Performed By: #### L 500.2500, L100.0100, L501.4021 ####[facility] [address] [place], [address] MCV (mean corpuscular volume ) determinationOrdered By: Mauro Ryder on 10-18-2024 MCV (RBC) [Entitic vol] 89.5 fL 81-99 [facility] Mean corpuscular hemoglobin (MCH) determinationOrdered By: [facility] on 10-18-2024 MCH (RBC) [Entitic mass] 30.5 pg 27.0-32.0 [facility] Mean corpuscular hemoglobin concentration (MCHC) determinationOrdered By: Mauro Ryder on 10-18-2024 MCHC (RBC) [Mass/Vol] 34.1 g/dL 32-36 [facility] Mean platelet volume determi nationOrdered By: Mauro Ryder on 10-18-2024 Platelet mean volume (Bld) [Entitic vol] 9.2 fL 6.2-12.0 [facility] Microscopic analysis of urin e for red blood cells (RBC)Ordered By: Mauro Ryder on 10-18-2024 Microscopic analysis of urine for red blood cells (RBC) 0 SEEN /hpf 0-5 [facility] Monocyte percentageOrdered B y: Mauro Ryder on 10-18-2024 Monocytes/100 WBC (Bld) 7.6 % 0-10 [facility] Mucus LM Ql (Urine sed)Order ed By: Mauro Ryder on 10-18-2024 Mucus Ql (Urine sed) 0 SEEN /[facility] Neutrophil percentageOrdered By: Mauro Ryder on 10-18-2024 Neutrophils/100 WBC (Bld) 73.6 % High 47-70 [facility] Nitrite Test strip Ql (U)Ord ered By: Mauro Ryder on 10-18-2024 Nitrite Ql (U) Negative Negative [facility] Nucleated red blood cell per centageOrdered By: Mauro Ryder on 10-18-2024 Nucleated RBC/100 WBC (Bld) [Ratio] 0 % 0-5 [facility] Platelet countOrdered By: Jeromy Ryder on 10-18-2024 Platelets (Bld) [#/Vol] 247 10*3/uL 150-450 [facility] Potassium measurement (mass/ volume)Ordered By: Mauro Ryder on 10-18-2024 Potassium (Unsp spec) [Mass/Vol] 3.6 mmol/L 3.3-5.1 [facility] Protein Test strip Ql (U)Ord ered By: Mauro Ryder on 10-18-2024 Protein Ql (U) Negative Negative [facility] RBC Auto (Bld) [#/Vol]Ordere d By: Mauro Ryder on 10-18-2024 RBC (Bld) [#/Vol] 4.46 10*6/uL 4.2-5.4 [facility] Serum creatinine measurement (mass/volume)Ordered By: Mauro Ryder on 10-18-2024 Creatinine [Mass/Vol] 0.87 mg/dL 0.70-1.20 [facility] Serum glucose measurement (m ass/volume)Ordered By: Mauro Ryder on 10-18-2024 Glucose [Mass/Vol] 106 mg/dL High 70-99 [facility] Serum or plasma calcium rashawn urement (mass/volume)Ordered By: Mauro Mahajan on 10-18-2024 Calcium [Mass/Vol] 9.0 mg/dL 7.6-11.0 [facility] Serum or plasma urea nitroge n measurement (mass/volume)Ordered By: Mauro Ryder on 10-18-2024 Urea nitrogen [Mass/Vol] 19 mg/dL 4-19 [facility] Sodium levelOrdered By: Deep Ryder on 10-18-2024 Sodium [Moles/Vol] 140 mmol/L 133-145 [facility] Squamous epithelial cells de tection in urine sediment by light microscopyOrdered By: Mauro Ryder on 10-18-2024 Epithelial cells.squamous LM Ql (Urine sed) 0 SEEN /hpf - [facility] Troponin T.cardiac [Mass/vol ume] in Serum or Plasma by High sensitivity methodOrdered By: Mauro Ryder on 10-18-2024 Troponin T.cardiac High sensitivity method [Mass/Vol] 6 ng/L <14 [facility] Urinalysis, Completeon 10-18 BACTERIA 0 SEEN Normal None Seen [facility] Comment on above: Order Comment: DOC TER SPECIMEN Performed By: #### L 400.0001 #### [facility] [address] [place], [place], [id number] EPI,SQUAMOUS 0 SEEN Normal 09-05 [facility] Comment on above: Order Comment: DOC TER SPECIMEN Performed By: #### L 400.0001 #### [facility] [address] [place], [address] Mucus Ql (Urine sed) 0 SEEN [facility] Comment on above: Order Comment: DOC TER SPECIMEN Performed By: #### L 400.0001 #### [facility] [address] [place], [place], [id number] RBC 0 SEEN Normal 0-5 [facility] Comment on above: Order Comment: DOC TER SPECIMEN Performed By: #### L 400.0001 #### [facility] [address] [place], [address] WBC 0 SEEN Normal 0-5 [facility] Comment on above: Order Comment: DOC TER SPECIMEN Performed By: #### L 400.0001 #### [facility] [address] [place], [place], [id number] Urine clarityOrdered By: Ishan Ryder on 10-18-2024 Clarity (U) Clear Clear [facility] Urine color determinationOrd ered By: Mauro Ryder on 10-18-2024 Color (U) Yellow Yellow [facility] Urine glucose detectionOrder ed By: Mauro Ryder on 10-18-2024 Glucose Ql (U) Normal mg/dl Normal [facility] Urine leukocyte esterase det ection by dipstickOrdered By: Mauro Ryder on 10-18-2024 Leukocyte esterase Test strip Ql (U) Negative Negative [facility] Urine pHOrdered By: Mauro Londono on 10-18-2024 pH (U) 6.5 [pH] 5.0 - 8.0 [facility] Urine sediment bacteria coun t by microscopy (number/high power field)Ordered By: Mauro Ryder on 10-18-2024 Bacteria LM.HPF (Urine sed) [#/Area] 0 /[HPF] None Seen [facility] Urine specific gravity measu rementOrdered By: Mauro Ryder on 10-18-2024 Specific gravity (U) [Rel density] 1.015 1.002-1.030 [facility] Urine urobilinogen measureme ntOrdered By: Mauro Ryder on 10-18-2024 Urobilinogen Ql (U) Normal mg/dl Normal [facility] White blood cell (WBC) count Ordered By: Mauro Ryder on 10-18-2024 WBC (Bld) [#/Vol] 12.0 10*3/uL High 4.4-11.0 [facility] White blood cell countOrdere d By: Mauro Ryder on 10-18-2024 White blood cell count 0 SEEN /hpf 0-5 [facility] Pulmonary Visit Reporton Pulmonary Visit Report [facility] [place] [address] [place] [address] OFFICE VISIT Date of Service: 12/12/23 MR#: [id number] Acct: [id number] Name: RUSSELL DSOUZA Rep #: [id number] : 1960 Provider: ASHLEY Rosas Age/Sex: 63/F Location: [facility] Status: Signed with Addenda ADDENDUM by Nella [...] nodule Plan Details Follow Up: 1 Year ([facility]) HPI 1 Y FU Chief Complaint: Routine [...] 97. Intake Visit Reasons: 1 Y FU General Teller Required: No DME Vendor: n/a Accompanied by: [...] (Reviewed 12/12/23 @ 07:50 by Liliana Rosas MEDICAL SOCIAL CONSULTANT, MEDICAL SOCIAL CONSULTANT-C) Adhesive capsulitis of right shoulder Lung nodule Seasonal allergies Hypertension Surgical History ... Normal [facility] MR/BMS.IMBon 12-09-2023 MR/BMS.IMB [facility] [address] [place], [place] [address] OFFICE VISIT Date of Service: 12/09/23 MR#: [id number] Acct: [id number] Name: RUSSELL DSOUZA Rep #: [id number] : 1960 Provider: Dr. Thelma lovell MD Age/Sex: 63/F Location: [facility] Status: Signed Intake Vital Signs 12/10/22 10:02 [...] Y FU Chief Complaint: Annual Wellness Visit General Teller Required: No Accompanied by: Self Is patient [...] in tigre (more content not included)... Normal [facility] Whole blood hemoglobin A1c/t otal hemoglobin ratio (mass fraction)Ordered By: Adilson Wilson on 06-18-2023 HbA1c (Bld) [Mass fraction] 5.7 % 3.8-5.6 [facility] Comment on above: Normal < 5.7 % Predi abetic 5.7 - 6.4 % Diabetic >or= 6.5 % Please note range changes. Vital Signs Date Time Vital Sign Value Performing Clinician Faci lity 10-21-2024 13:32-0400 Body height 165.[address] Thelma Ahumada MD Work Phone: [facility] 10-21-2024 13:32-0400 Body mass index (BMI) [Ratio] 35.2 kg/m2 Dr. Thelma Ahumada MD Work Phone: [facility] 10-21-2024 13:32-0400 Body temperature 98.6 [degF] Dr. Thelma Ahumada MD Work Phone: [facility] 10-21-2024 13:32-0400 Body weight 95.[address] Thelma Ahumada MD Work Phone: [facility] 10-21-2024 13:32-0400 Diastolic blood pressure 82 mm[Hg] Dr. Thelma Ahumada MD Work Phone: [facility] 10-21-2024 13:32-0400 Heart rate 65 /min Dr. Thelma Ahumada MD Work Phone: [facility] 10-21-2024 13:32-0400 Respiratory rate 16 /min Dr. Thelma Ahumada MD Work Phone: [facility] 10-21-2024 13:32-0400 SaO2% (BldA) [Mass fraction] 95 % Dr. Thelma Ahumada MD Work Phone: [facility] 10-21-2024 13:32-0400 Systolic blood pressure 122 mm[Hg] Dr. Thelma Ahumada MD Work Phone: [facility] 10-19-2024 01:42-0400 Body temperature 98.1 [degF] Dr. Thelma Ahumada MD Work Phone: [facility] 10-19-2024 01:42-0400 Diastolic blood pressure 92 mm[Hg] Dr. Thelma Ahumada MD Work Phone: [facility] 10-19-2024 01:42-0400 Heart rate 84 /min Dr. Thelma Ahumada MD Work Phone: [facility] 10-19-2024 01:42-0400 Respiratory rate 18 /min Dr. Thelma Ahumada MD Work Phone: [facility] 10-19-2024 01:42-0400 SaO2% (BldA) [Mass fraction] 94 % Dr. Thelma Ahumada MD Work Phone: [facility] 10-19-2024 01:42-0400 Systolic blood pressure 131 mm[Hg] Dr. Thelma Ahumada MD Work Phone: [facility] 10-18-2024 22:16-0400 Body height 165.[address] Thelma Ahumada MD Work Phone: [facility] 10-18-2024 22:16-0400 Body mass index (BMI) [Ratio] 34.9 kg/m2 Dr. Thelma Ahumada MD Work Phone: [facility] 10-18-2024 22:16-0400 Body weight 95.[address] Thelma Ahumada MD Work Phone: [facility] 06-03-2023 08:10-0500 Body height 166.[address] Thelma Ahumada Work Phone: [facility] 06-03-2023 08:10-0500 Body mass index (BMI) [Ratio] 35.4 kg/m2 Dr. Thelma Ahumada Work Phone: [facility] 06-03-2023 08:10-0500 Body temperature 98.1 [degF] Dr. Thelma Ahumada Work Phone: [facility] 06-03-2023 08:10-0500 Body weight 98.[address] Thelma Ahumada Work Phone: [facility] 06-03-2023 08:10-0500 Diastolic blood pressure 78 mm[Hg] Dr. Thelma Ahumada Work Phone: [facility] 06-03-2023 08:10-0500 Heart rate 91 /min Dr. Thelma Ahumada Work Phone: [facility] 06-03-2023 08:10-0500 Respiratory rate 16 /min Dr. Thelma Ahumada Work Phone: [facility] 06-03-2023 08:10-0500 SaO2% (BldA) [Mass fraction] 93 % Dr. Thelma Ahumada Work Phone: [facility] 06-03-2023 08:10-0500 Systolic blood pressure 128 mm[Hg] Dr. Thelma Ahumada Work Phone: [facility] Encounters Encounter Date Encounter Type Care Provider Facility Start: 11-09-2024 ambulatory Thelma Ahumada Facility :[facility] Start: 11-03-2024 ambulatory [place] Facility:[facility] Start: 10-21-2024 End: 10-21-[address] Thelma Ahumada MD -[facility] Work Phone: Start: 10-21-2024 End: 10-21-[address] Thelma Ahumada MD Work Phone: [facility] Work Phone: Start: 10-18-2024 End: 10-19-2024 Emergency department patient visit Dr. Thelma Ahumada MD Work Phone: -Emergency Department Work Phone: Start: 12-12-2023 End: 12-12-2023 ambulatory Liliana Rosas NP Facility:[facility] Start: 12-09-2023 End: 12-09-2023 ambulatory Thelma Ahumada Facility:[facility] Start: 06-18-2023 End: 06-18-[address] Thelma Ahumada Work Phone: [facility] Work Phone: Start: 06-18-2023 End: 06-18-[address] Thelma Ahumada Work Phone: [facility] Work Phone: Start: 06-03-2023 End: 06-03-[address] Thelma Ahumada Work Phone: [facility] [place] Work Phone: Start: 10-29-2022 End: 10-29-2022 ambulatory [facility] Work Phone: Start: 10-29-2022 End: 10-29-2022 Patient encounter procedure [facility]-Cat Scan, [facility] Work Phone: Procedures Date Procedure Procedure Detail Performing Clinician Start: 10-18-2024 X-ray of chest, PA a nd lateral views Dr. Thelma Ahumada MD Work Phone: Start: 10-18-2024 D-dimer assay, quantitative Dr. Thelma Ahumada MD Work Phone: Comment on above: NORMAL D-Dimer level (<0.50) indicates no DVT or PE. Start: 10-18-2024 Urnls dip stick/tabl et reagent auto microscopy Dr. Thelma Ahumada MD Work Phone: Start: 10-18-[address] Thelma Ahumada MD Work Phone: Start: 10-18-2024 CT of head without contrast Dr. Thelma Ahumada MD Work Phone: Start: 06-18-2023 Plain X-ray of shoulder Dr. Thelma Ahumada Work Phone: Start: 10-29-2022 CT of chest without contrast Plan of Treatment Date Care Activity Detail Author Start: 10-19-2024 [facility] Start: 10-18-2024 [facility] Patient Education Vertigo Balanc e Problems Tests Vertigo Staying Safe ED Vertigo, Unspecified [facility] Work Phone: Patient referral [facility] Work Phone: US Carotid arteries [facility] Payers Date Payer Category Payer Self-pay [id number] 2022 Private Health Insurance [facility] [id number] Private Health Insurance [facility] [id number] Unknown [employer] [id number] Unknown [id number] 2.16.8 [id number] Unknown [id number] 2.16.8 [id number] Unknown [id number] 2.16.8 [id number] Unknown [id number] 2.16.8 [id number] Unknown [id number] 2.16.8 [id number] Unknown [id number] 2.16.8 [id number] Unknown [id number] 2.16.8 [id number] Social History Date Type Detail Facility Start: 06-20-2022 End: 06-18-2023 Tobacco smoking status NHIS Unknown if ever smoked [facility] Start: 06-05-2020 None [facility] Start: 06-05-2020 With Family [facility] Start: 1960 Sex Assigned At Female [facility] Start: 10-18-2024 End: 10-21-2024 Tobacco smoking status NHIS Smokes tobacco daily (finding) [facility] Mental Status Date Assessment Result Facility 10-18-2024 Cognitive function Voice/Name [facility] Work Phone: Discharge summary 10-19-2024 Note Date & Type Note Facility 10-19-2024 Discharge summary [facility] Radiology Diagnostic study note 10-18-2024 Note Date & Type Note Facility 10-18-2024 Radiology Diagnostic study note [facility] Imaging Services [address] [place] [address] Chest PA and Lateral MR#: [id number] Acct: [id number] Name: RUSSELL DSOUZA Rep #: [id number] : 1960 F 64 From: Evelyn Chou MD PCP: Dr. Thelma Ahumada MD Status: PRE ER Study:Chest PA and Lateral Date of Exam: 10/18/24 Exam# [id number] Ordering Dr: Mauro Willett DO PROCEDURE: CHEST PA AND LATERAL 10/18/2024 REASON FOR EXAM: DIZZINESS TECHNIQUE: CHEST PA AND LATERAL COMPARISON: Prior chest CT from 11/04/2023 and 10/29/2022 FINDINGS: 2.2 x 2.2 cm opacity within the right midlung likely a pulmonary nodule as seen on multiple prior CTs. No focal consolidations. No pleural effusion or pneumothorax. Cardiac silhouette is unchanged. No acute fractures. RAD/Chest PA and Lateral IMPRESSION: Again seen is a 2.2 cm circular right midlung nodule. No focal consolidations. No pleural effusion or pneumothorax. Reading Location: [id number] CC: Dr. Mauro Ryder DO; Dr. Thelma Ahumada MD ~ Professor Of Surgery: Signed [facility] Radiology Diagnostic study note 10-18-2024 Note Date & Type Note Facility 10-18-2024 Radiology Diagnostic study note [facility] Imaging Services [address] [place] [address] Brain/Head without Contrast MR#: [id number] Acct: [id number] Name: RUSSELL DSOUZA Rep #: [id number] : 1960 F 64 From: David Hendricks MD PCP: Dr. Thelma Ahumada MD Status: PRE ER Study:Brain/Head without Contrast Date of Exa m: 10/18/24 Exam# [id number] Ordering Dr: Mauro Willett DO PROCEDURE: BRAIN/HEAD WITHOUT CONTRAST 10/18/2024 REASON FOR EXAM: DIZZINESS TECHNIQUE: BRAIN/HEAD WITHOUT CONTRAST Coronal and Sagittal reconstruction series were provided. One or more dose reduction techniques were used (e.g., Automated exposure control, adjustment of the mA and/or kV according to patient size, use of iterative reconstruction technique. RADIATION DOSE SUMMARY: CTDlvol: 44.99 mGy DLP: 829.85 mGycm COMPARISON: 06/05/2020. FINDINGS: CT SCAN OF THE BRAIN WITHOUT IV CONTRAST CLINICAL INDICATION: TECHNIQUE: Axial and reformatted sagittal and coronal images of the brain obtained without IV contrast administration. Normal size of the ventricles and extra-axial spaces for the patient's age. Normal white matter tracts of the supratentorial brain. Normal basal ganglia and thalami. Normal brainstem. Normal cerebellum. There is no demonstrated extra-axial, intraparenchymal, or intraventricular hemorrhage. There are no findings of an acute ischemic infarction. Normal calvarium. There is no demonstrated fracture. Normal soft tissue structures. Normal visualized paranasal sinuses. CT/Brain/Head without Contrast IMPRESSION: Normal unenhanced CT scan of the brain. Reading Location: [place] [address] CC: Dr. Mauro Ryder DO; Dr. Thelma Ahumada MD ~ Professor Of Surgery: Signed [facility] Discharge summary 10-18-2024 Note Date & Type Note Facility 10-18-2024 Discharge summary Note Date/Time October 19, 2024 1:31am [facility] Medical Records Department [address] [place] [address] Emergency Department Summary 10/18/24 MR#: [id number] Acct: [id number] Name: RUSSELL DSOUZA Rep #:[id number] : [id number] 64 From: Mauro ramon DO PCP: Dr. Thelma Ahumada MD Status:REG ER Location: ED HPI History of Present Illness Chief Complaint: Dizziness Narrative Narrative: Chief complaint and HPI: Dizziness with presyncope. 64-year-old female with past medical history of HTN and tobacco abuse presents for evaluation of dizziness with presyncope. Patient states this evening after getting up from a seated position she became dizzy/lightheaded. She states she was able to make it to her bedroom where she rested in bed. She states she then got up to smoke a cigarette and when walking she became dizzy/lightheaded with tunnel vision. Associated symptom was nausea and one episode of nonbilious/nonbloody emesis. She denies room spinning. She denies any fever, chills, URI symptoms, headache,vision changes, hearing changes, shortness of breath, chest pain abdominal pain,dysuria, diarrhea, constipation. Patient endorses good p.o. intake. She deniesany neurological deficit, weakness, numbness/tingling. On chart review, patienthas a history of dizziness in the past at that time she was diagnosed with HTN and vertigo. Review of systems: See HPI Medications: As listed on the chart Allergies: As listed on the chart PFSH: Per chart Vital signs: As listed on the chart. Reviewed. Physical exam: Gen: A&O x3, NAD Head: Normocephalic, atraumatic Eyes: No sclera icterus, conjunctiva clear, PERRL, EOMI no nystagmus, ENT: Moist mucous membranes, No facial asymmetry Neck: Trachea midline, No JVD CV: RRR, no murmurs, no peripheral edema Resp: Lungs CTA BL, no w/r/c GI: Abd soft, non-distended, non-tender, no r/r/g Musc: Full ROM, no deformity, strength +5/5 in all extremities, no pronator drift, no ataxia Skin: Warm, dry, intact Neuro: Alert, oriented, grossly intact, sensation intact, no focal deficits Psych: Cooperative, appropriate mood and affect [facility] Medical History (Reviewed 12/12/23 @ 07:50 by Liliana Rosas MEDICAL SOCIAL CONSULTANT, MEDICAL SOCIAL CONSULTANT-C) Adhesive capsulitis of right shoulder Lung nodule Seasonal allergies Hypertension Home Medications ?Medication ?Instructions ?Recorded ?Last Taken ?Type calcium 600 mg (as 600 cap PO BID 12/21/20 Unkn own History carbonate)-vitamin D3 12.5 mcg (500 unit) capsule (Calcium with Vit D3) amlodipine 5 mg tablet 5 mg PO BID #180 tabs Unknown Rx meclizine 25 mg tablet 25 mg PO TID PRN dizziness 3 days 10/19/24 Unknown Rx #9 tabs Allergy/AdvReac Type Severity Reaction Status Date / Time codeine AdvReac Other Verified 12/12/23 07:41 Family History Mother Breast cancer CVA (cerebral vascular accident) Hypertension Osteoporosis Alcoholism Other Depression with anxiety Surgical History (Reviewed 12/12/23 @ 07:50 by Liliana Rosas MEDICAL SOCIAL CONSULTANT, MEDICAL SOCIAL CONSULTANT-C) History of appendectomy Social History Smoking Status: Current every day smoker tobacco type: cigarettes Tobacco: How many years used: 40 alcohol intake: never substance use type: does not use what type of physical activity do you participate in: walking frequency: daily EXAM Physical Exam Const Vital Signs: 10/18/24 22:16 10/18/24 22:55 10/19/24 00:20 Temperature 98.4 F Temperature Source Oral Pulse Rate 64 64 Pulse Rate [Lying] 66 Respiratory Rate 18 20 H Blood Pressure 156/72 H 121/49 H Blood Pressure [Lying] 156/76 H Blood Pressure Mean 100 73 Blood Pressure Mean [Lying] 102 Pulse Ox 96 95 Oxygen Delivery Method Room Air Room Air MDM MDM MDM Narrative Medical decision making narrative: 64-year-old female with past medical history of HTN and tobacco abuse presents for evaluation of dizziness with presyncope. Dizziness appears worsened with change in position. Associated symptom was nausea with one episode of emesis. On chart review, she had a history of this in the past in which she was diagnosed with HTN and vertigo. On presentation, patient is no acute distress. Physical exam is unremarkable. She is mildly hypertensive otherwise vitals are stable. Differential diagnosis includes but is not limited to orthostatic hypotension, vasovagal response, vertigo, dehydration, electrolyte abnormality, TAPAN, UTI, suspect less likely intracranial abnormality or ACS. NS bolus, Zofran, meclizine ordered for symptoms. Laboratory workup ordered including chest x-ray and CT head. Orthostatic vital signs were attempted however patient endorsed dizziness with a seated position and therefore declined further vital testing. EKG and chest x-ray reviewed below. CBC with mild leukocytosis of 12. No anemia. D-dimer unremarkable. BMP unremarkable without significant electrolyte abnormality or TAPAN. UA negative for ketones or UTI. CT head without any acute intracranial abnormality. Troponin negative x 2. At this point in time, no clear etiology for patient's dizziness. On reevaluation, patient states she has no dizziness at rest however when she moves or ambulates she develops dizziness. We attempted an ambulation trial in which patient failed. She endorsed room spinning vertigo as well as inability to ambulate. Given this concern, patient will warrant admission due to unsafe discharge. I spoke with the patient who confirmed understanding of the plan. Patient was discussed with Dr. Harrison, the hospitalist. He would like to try scopolamine patch with reevaluation. I do think this is appropriate. Scopolamine patch placed. On reevaluation, patient's dizziness has improved. She was able to ambulate down the hallway and states her dizziness is much improved. Patient symptoms are likely secondary to vertigo. Patient is stable to discharge home. She was educated that the patch needs to be removed in 72 hours. She is educated to not touch the patch with her bare hands and if she does she needs to use soap and water. Recommended to follow-up with PCP. Return precautions explained. Will provide a walker for home as patient does not have any ambulatory devices to help her if her dizziness reoccurs. Will send her with a short course of meclizine. EKG: Interpreted by me/EM physician: EKG shows sinus bradycardia without any acute ischemic changes. Heart rate 59. Diagnostic: Interpreted by me/EM physician: Chest x-ray without pneumonia, effusion, pneumothorax. Patient has a right lung nodule. On chart review, this is present on previous imaging. Per radiology it is 2.2 cm. Impression 1. Vertigo Lab Data Labs: Laboratory Results - last 24 hr 10/18/24 10/18/24 10/18/24 22:45 22:55 23:00 WBC 12.0 H RBC 4.46 Hgb 13.6 Hct 39.9 MCV 89.5 MCH 30.5 MCHC 34.1 RDW Std Deviation 40.5 RDW Coeff of Oliver 12.4 Plt Count 247 MPV 9.2 Immature Gran % (Auto) 0.400 Neut % (Auto) 73.6 H Lymph % (Auto) 17.1 L Logan % (Auto) 7.6 Eos % (Auto) 0.7 Baso % (Auto) 0.6 Absolute Neuts (auto) 8.9 H Absolute Lymphs (auto) 2.06 Nucleated RBC % 0 D-Dimer Quant (PE/DVT) Cancelled Sodium 140 Potassium 3.6 Chloride 104 Carbon Dioxide 24.6 Anion Gap 12 BUN 19 Creatinine 0.87 Estim Creat Clear Calc 72.62 Est GFR (MDRD) Non-Af 74 BUN/Creatinine Ratio 21.4 H Glucose 106 H Calcium 9.0 Troponin T High Sens 6 Troponin T Hi Sens 2 Hr Urine Color Yellow Urine Clarity Clear Urine pH 6.5 Ur Specific [place] 1.015 Urine Protein Negative Urine Glucose (UA) Normal Urine Ketones Negative Urine Occult Blood 10 H Urine Nitrite Negative Urine Bilirubin Negative Urine Urobilinogen Normal Ur Leukocyte Esterase Negative Urine RBC 0 SEEN Urine WBC 0 SEEN Ur Squamous Epith Cells 0 SEEN Urine Bacteria 0 SEEN Urine Mucus 0 SEEN 10/18/24 10/19/24 23:14 00:40 WBC RBC Hgb Hct MCV MCH MCHC RDW Std Deviation RDW Coeff of Oliver Plt Count MPV Immature Gran % (Auto) Neut % (Auto) Lymph % (Auto) Logan % (Auto) Eos % (Auto) Baso % (Auto) Absolute Neuts (auto) Absolute Lymphs (auto) Nucleated RBC % D-Dimer Quant (PE/DVT) 0.31 Sodium Potassium Chloride Carbon Dioxide Anion Gap BUN Creatinine Estim Creat Clear Calc Est GFR (MDRD) Non-Af BUN/Creatinine Ratio Glucose Calcium Troponin T High Sens Troponin T Hi Sens 2 Hr 7 Urine Color Urine Clarity Urine pH Ur Specific [place] Urine Protein Urine Glucose (UA) Urine Ketones Urine Occult Blood Urine Nitrite Urine Bilirubin Urine Urobilinogen Ur Leukocyte Esterase Urine RBC Urine WBC Ur Squamous Epith Cells Urine Bacteria Urine Mucus Radiography Diagnostic Testing: Clinical Impression(s) from Imaging Studies Brain CT 10/18/24 22:32 IMPRESSION: Normal unenhanced CT scan of the brain. Reading Location: [place] [address] Chest X-Ray 10/18/24 23:31 IMPRESSION: Again seen is a 2.2 cm circular right midlung nodule. No focal consolidations. No pleural effusion or pneumothorax. Reading Location: [facility] Discharge Plan Triage Chief Complaint: Dizziness ED Provider: Mauro Ryder Dx/Rx/DC Orders Clinical Impression: Vertigo Instructions: Vertigo Balance Problems Tests, Vertigo Staying Safe, ED Vertigo, Unspecified Prescriptions: New meclizine 25 mg tablet 25 mg PO TID PRN (Reason: dizziness) 3 Days Qty: 9 0RF No Action calcium carbonate-vitamin D3 [Calcium 600 with Vitamin D3] 600 mg(1,500mg) -500 unit capsule 600 cap PO BID amlodipine 5 mg tablet 5 mg PO BID Qty: 180 3RF Primary Care Provider: Thelma Ahumada Referrals: Thelma Ahumada MD [Primary Care Provider] - 3-5 Days Activity Restrictions/Additional Instructions: Follow-up with primary care physician. Return back to the ED if symptoms changeor worsen. Scopolamine patch needs to be removed on 10/22/2024 at 1230 AM, okay to remove it earlier if needed. Do not touch the patch with bare hands. Meclizine as needed for dizziness. Print Language: Amharic Disposition Disposition: Home, Self Care What to do if you have Problems For any increased pain, shortness of breath, bleeding, nausea or vomiting, chestpain, or any unexpected problems, contact your Primary Care Provider. Call [facility] ([phone]) or report to the closest Emergency Room. Call 911 if necessary. 10/19/24 0131 <Electronically signed by Mauro Ryder DO> Cosigner Signature (if applicable): CC: Dr. Thelma Ahumada MD ~ Signed [facility] Work Phone: Evaluation note Note Date & Type Note Facility Evaluation note No assessment information availa ble [facility] Work Phone: Evaluation note Note Date & Type Note Facility Evaluation note Diagnosis Onset Date Right shoulder pain acute Asthma-COPD overlap syndrome chronic Hypertension chronic Adhesive capsulitis of right shoulder acute Right shoulder pain acute [facility] Work Phone: Hospital Discharge instructions Note Date & Type Note Facility Hospital Discharge instructions Additional Instructions Follow-up with primary care physician. Return back to the ED if symptoms change or worsen. Scopolamine patch needs to be removed on 10/22/2024 at 1230 AM, okay to remove it earlier if needed. Do not touch the patch with bare hands. Meclizine as needed for dizziness. [facility] Work Phone: Reason for referral (narrative) Note Date & Type Note Facility Reason for referral (narrative) No reason for referral information available [facility] Work Phone: Chief Complaint and Reason for Visit Chief Complaint LUNG NODULE Chief Complaint RT Arm Pain RIGHT SHOULDER Room 1 EORDER Reason for Visit Right shoulder pain Asthma-COPD overlap syndrome Hypertension Adhesive capsulitis of right shoulder Right shoulder pain Chief Complaint Admit Date dizziness October 18, 2024 10:1 6pm Chief Complaint Admit Date dizziness October 18, 2024 10:1 6pm Vertigo October 21, 2024 1:22 pm Family History No Family History Records Found Relationship Condition Age at Onset Recorded Date/T ravindra Not Specified Anxiety with depression Unknown mother Malignant neoplasm of breast Unknown Cerebrovascular accident (CVA) Unknown Hypertension Unknown Osteoporosis Unknown Alcoholism Unknown Advance Directives No Advanced Directives Records Found Advance Directive Response Recorded Date/ Time Living Will Yes December 23 9:38am Power of Plow And Boring Machine Tender Yes December 23 9:38am Advance Directive Response Recorded Date/ Time Living Will Yes December 23 8:38am Power of Plow And Boring Machine Tender Yes December 23 8:38am Advance Directive Response Recorded Date/ Time Do you have a Healthcare Power of Plow And Boring Machine Tender? Yes October 18, 2024 10:20pm Summary Purpose Additional Source Comments Care Teams [...] MD Attending Provider, Referring Prov ider Active Team Status: Active Member Role Status Dates Dr. Thelma Ahumada MD Primary Care Provider Active Team Status: Inactive Member Role Status Dates Dr. Thelma Ahumada MD Primary Care Provider Active Start: October 18, 2024 End: October 19, 2024 Dr. Mauro Ryder DO Emergency Provider Activ e Start: October 18, 2024 End: October 19, 2024 Team Status: Inactive Member Role Status Dates Dr. Thelma Ahumada MD Primary Care Provider Active Start: October 21, 2024 End: October 21, 2024 Dr. Thelma Ahumada MD Attending Provider Active Start: October 21, 2024 End: October 21, 2024 Goals (unrecognized section and content) Goals may be documented in a n alternate sectionGoals may be documented in an alternate sectionGoals may be documented in an alternate sectionGoals may be documented in an alternate section INFORMATION SOURCE (unrecogn ized section and content) DATE CREATED AUTHOR 11/07/2024 [facility] FOR RECORDS PERTAINING TO PATIENTS WHO ARE [...] BE BASED ON THE PRIMARY CLINICAL RECORDS. [facility] [employer] [facility]. provides no warranty or guarantee of the accuracy or completeness of information in this document.
== END | disposition home or self-care (01) ==
LOC: CT 06:15
PROVIDERS: PCP Internal Medicine; Referring Provider Nurse Practitioner Acute Care; Visit Provider Nurse Practitioner Acute Care
DX: R91.1 Solitary pulmonary nodule (principal); F17.210 Nicotine dependence, cigarettes, uncomplicated
CPT/HCPCS: 71271

== ENCOUNTER → 2025-01-11 | Outpatient (CLI) | payer MEDICARE, SELFPAY ==
[2025-01-11 12:11] LABS: Hematocrit 40.0 % (37-47); Hemoglobin 13.3 g/dL (12.0-15.0); Immature Granulocytes Count 0.030 X10^3/uL (0.0-0.0); Mean Corp Hgb Conc 33.3 g/dL (32-36); Mean Corpuscular Volume 92.6 fL (81-99); Mean Platelet Vol. 9.8 fl (6.2-12.0); NRBC Flagged by Analyzer 0 % (0-5); Platelet Count 277 K/mm3 (150-450); RBC Distribution Width CV 12.5 % (11.6-14.6); RBC Distribution Width SD 42.5 fl (35.1-43.9); Red Blood Count 4.32 M/mm3 (4.2-5.4); White Blood Count 8.7 K/mm3 (4.4-11.0)
[2025-01-11 13:30] LABS: AST(SGOT) 25 U/L (<=31); Alanine Aminotransfer ALT/SGPT 20 U/L (<=34); Albumin, Serum 4.2 g/dL (3.4-4.8); Alkaline Phosphatase 77 U/L (35-104); Anion Gap 13 (5-15); BUN 15 mg/dL (4-19); BUN/Creat Ratio 17.2 RATIO (10-20); Calcium,Total 9.4 mg/dL (7.6-11.0); Carbon Dioxide 22.2 mmol/L (21.0-32.0); Chloride 105 mmol/L (98-108); Cholesterol 220 mg/dL (<=200); Globulin 2.8 g/dL (2.2-4.2); Glucose 102 mg/dL (70-99); Low Density Lipoprotein Calc. 136 mg/dL; Potassium 4.0 mmol/L (3.3-5.1); Triglycerides 148 mg/dL; Very Low Density Lipoprotein 30 mg/dL (5-40); Vitamin D,25 Hydroxy 45.4 ng/mL (30-100); cholesterol:hdl ratio screen 4.01
== END | disposition home or self-care (01) ==
LOC: BIMLAB 11:36
PROVIDERS: PCP Internal Medicine; Referring Provider Internal Medicine; Visit Provider Internal Medicine
DX: Z13.220 Encounter for screening for lipoid disorders (principal); J44.9 Chronic obstructive pulmonary disease, unspecified; I10 Essential (primary) hypertension; E55.9 Vitamin D deficiency, unspecified
CPT/HCPCS: 36415; 80053; 80061; 82306; 84443; 85025